=== PATIENT | male | born 1970 | race Caucasian/White ===

== ENCOUNTER → 2016-10-30 | Outpatient (CLI) | payer OTHER ==
[~2016-10-30] MED LIST: AMLO5TAB2 PO; FURO40TA PO; HYDR50CA PO; MULT-136 PO; MULTTAB; SPIR100T PO; VITA250T25 PO; potassium PO
[2016-10-30 09:38] LABS: HEMATOCRIT 43.6 % (39.0-51.0); MEAN CELL VOLUME 94.8 FL (80.0-100.0); MEAN CORPUSCULAR HEMOGLOBIN 32.3 PG (27.0-34.0); MEAN CORPUSCULAR HGB CONC 34.1 % (32.0-36.0); PLATELET COUNT 62 TH/MM3 (150-450); RED BLOOD COUNT 4.59 MIL/MM3 (4.50-5.90); RED CELL DISTRIBUTION WIDTH 15.3 % (11.6-17.2); WHITE BLOOD COUNT 5.5 TH/MM3 (4.0-11.0)
[2016-10-30 09:41] LABS: REVIEW FLAG FINAL
[2016-10-30 10:11] LABS: ANION GAP 6 MEQ/L (5-15); AST (GOT) 51 U/L (15-37); BICARBONATE 25.9 MEQ/L (21.0-32.0); BLOOD UREA NITROGEN 9 MG/DL (7-18); CHLORIDE 104 MEQ/L (98-107); GLOMERULAR FILTRATION RATE 118 ML/MIN (>89); GLUCOSE,FASTING 112 MG/DL (74-99); POTASSIUM 4.4 MEQ/L (3.5-5.1); SODIUM (NA) 136 MEQ/L (136-145)
[2016-10-30 10:13] LABS: ALT (GPT) 30 U/L (12-78)
[2016-10-30 10:22] LABS: ALKALINE PHOSPHATASE 206 U/L (45-117); HDL CHOLESTEROL 38.1 MG/DL (40.0-60.0); LDL CHOLESTEROL 80 MG/DL (0-99); TOTAL BILIRUBIN ADULT 2.7 MG/DL (0.2-1.0)
== END ==
LOC: CLAB 09:03
PROVIDERS: ATTEND Family Medicine
DX: F10.10 Alcohol abuse, uncomplicated (principal); L73.9 Follicular disorder, unspecified; Z20.6 Contact with and (suspected) exposure to human immunodeficiency virus [HIV]; Z72.0 Tobacco use
CPT/HCPCS: 80053; 80061; 84443; 85027; 86703

== ENCOUNTER 2017-07-19 22:33 | Emergency (ER) | payer SELFPAY ==
[~2017-07-19] VITALS: Ht 177.8 cm; Wt 79.5 kg
[~2017-07-19 22:33] MED LIST changes: -MULT-136 PO
[2017-07-19 22:48] VITALS: BP 160/85; PULSE 96; RESP 18; TEMP 98.6; O2SAT 98
[2017-07-19] MEDS ORDERED: SODIUM CHLOR 0.9% 1000 ML INJ 1,000 ML IV SCH (23:34)
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
[2017-07-19] MEDS ORDERED: SODIUM CHLORIDE 0.9% FLUSH 10 ML FLUSH IV FLUSH PRN (23:45)
[2017-07-19] MEDS ORDERED: TETANUS/DIPHTHERIA TOXOID ADULT 0.5 ML VIAL IM ONE (23:45)
[2017-07-19 23:50] VITALS: BP 162/82; PULSE 88; RESP 18; O2SAT 98
[2017-07-19 23:58] VITALS: O2SAT 98
[2017-07-20 00:03] LABS: BILIRUBIN, URINE SMALL (NEG); BLOOD, URINE SMALL (NEG); GLUCOSE,URINE NEG (NEG); KETONE, URINE TRACE mg/dL (NEG); NITRITE,URINE NEG (NEG); PH, URINE 5.5 (5.0-8.5); URINE COLOR YELLOW (YELLW/STRAW); URINE LEUKOCYTE ESTERASE NEG (NEG)
[2017-07-20 00:04] LABS: AUTOMATED NEUTROPHIL # 8.9 TH/MM3 (1.8-7.7); BASOPHIL # 0.2 TH/MM3 (0-0.2); BASOPHIL % 2.2 % (0.0-2.0); EOSINOPHIL % 0.3 % (0.0-4.0); HEMATOCRIT 42.9 % (39.0-51.0); HEMOGLOBIN 14.8 GM/DL (13.0-17.0); LYMPH % 5.4 % (9.0-44.0); LYMPHOCYTE # 0.6 TH/MM3 (1.0-4.8); MEAN CELL VOLUME 99.1 FL (80.0-100.0); MEAN CORPUSCULAR HEMOGLOBIN 34.2 PG (27.0-34.0); MEAN CORPUSCULAR HGB CONC 34.5 % (32.0-36.0); MEAN PLATELET VOLUME 6.7 FL (7.0-11.0); MONOCYTE # 1.3 TH/MM3 (0-0.9); NEUT % 80.1 % (16.0-70.0); PLATELET COUNT 77 TH/MM3 (150-450); RED BLOOD COUNT 4.33 MIL/MM3 (4.50-5.90); RED CELL DISTRIBUTION WIDTH 14.2 % (11.6-17.2)
[2017-07-20 00:19] LABS: CHLORIDE 106 MEQ/L (98-107); SODIUM (NA) 137 MEQ/L (136-145)
[2017-07-20 00:23] LABS: SQUAMOUS EPITHELIAL CELL URINE 0-5 /hpf (0-5); WBC, URINE 0-2 /hpf (0-5)
[2017-07-20 00:24] LABS: ALBUMIN 3.5 GM/DL (3.4-5.0); BICARBONATE 20.2 MEQ/L (21.0-32.0); BLOOD UREA NITROGEN 9 MG/DL (7-18); CALCIUM 8.9 MG/DL (8.5-10.1); GLUCOSE,RANDOM 138 MG/DL (74-106)
[2017-07-20 00:27] LABS: ALT (GPT) 36 U/L (12-78); AST (GOT) 68 U/L (15-37); GLOMERULAR FILTRATION RATE 143 ML/MIN (>89)
[2017-07-20 00:29] LABS: TOTAL BILIRUBIN ADULT 3.2 MG/DL (0.2-1.0); TOTAL PROTEIN 8.1 GM/DL (6.4-8.2)
[2017-07-20 00:30] LABS: ALKALINE PHOSPHATASE 195 U/L (45-117)
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
[2017-07-20] MEDS ORDERED: CLINDAMYCIN 900 MG/NS PREMIX 50 ML IV ONE (01:30)
[2017-07-20 01:58] VITALS: BP 154/84; PULSE 88; RESP 18; O2SAT 99
[2017-07-20 05:37] VITALS: BP 150/80; PULSE 84; RESP 18; O2SAT 98
== END 2017-07-20 06:09 | disposition left against medical advice (07) ==
LOC: PHED 22:33
DX: S02.81XA Fracture of other specified skull and facial bones, right side, initial encounter for closed fracture (principal); S02.2XXA Fracture of nasal bones, initial encounter for closed fracture; S06.300A Unspecified focal traumatic brain injury without loss of consciousness, initial encounter; Y09 Assault by unspecified means; F10.10 Alcohol abuse, uncomplicated; Y90.6 Blood alcohol level of 120-199 mg/100 ml; K74.60 Unspecified cirrhosis of liver; Z23 Encounter for immunization; Z53.20 Procedure and treatment not carried out because of patient's decision for unspecified reasons
CPT/HCPCS: 70450; 70486; 72125; 80053; 80307; 81001; 82140; 85025; 90471; 90714; 96361; 96365; 99284; J7030

== ENCOUNTER 2017-09-14 06:09 | Emergency (ER) | payer OTHER ==
[~2017-09-14] VITALS: Ht 177.8 cm; Wt 78.0 kg
[~2017-09-14 06:09] MED LIST changes: -HYDR50CA PO; -MULTTAB; -VITA250T25 PO; -potassium PO
[2017-09-14 06:11] VITALS: BP 170/88; PULSE 102; RESP 20; TEMP 97.9; O2SAT 95
[2017-09-14 06:26] VITALS: BP 126/62; PULSE 89
[2017-09-14] MEDS ORDERED: FUROSEMIDE 40 MG/4 ML VIAL IV PUSH ONE (06:30)
[2017-09-14] MEDS ORDERED: FURO40TA PO (06:35)
[2017-09-14] MEDS ORDERED: SPIR100T PO (06:35)
[2017-09-14] MEDS ORDERED: AMLO5TAB2 PO (06:35)
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
[2017-09-14 06:49] LABS: AUTOMATED NEUTROPHIL # 7.5 TH/MM3 (1.8-7.7); BASOPHIL % 0.4 % (0.0-2.0); EOSINOPHIL # 0.1 TH/MM3 (0-0.4); EOSINOPHIL % 0.6 % (0.0-4.0); HEMATOCRIT 41.1 % (39.0-51.0); HEMOGLOBIN 14.4 GM/DL (13.0-17.0); LYMPH % 5.2 % (9.0-44.0); LYMPHOCYTE # 0.5 TH/MM3 (1.0-4.8); MEAN CELL VOLUME 98.9 FL (80.0-100.0); MEAN CORPUSCULAR HEMOGLOBIN 34.6 PG (27.0-34.0); MEAN PLATELET VOLUME 6.9 FL (7.0-11.0); MONO % 11.1 % (0.0-8.0); NEUT % 82.7 % (16.0-70.0); PLATELET COUNT 72 TH/MM3 (150-450); RED BLOOD COUNT 4.16 MIL/MM3 (4.50-5.90); RED CELL DISTRIBUTION WIDTH 14.5 % (11.6-17.2); WHITE BLOOD COUNT 9.1 TH/MM3 (4.0-11.0)
[2017-09-14 07:09] LABS: ALBUMIN 3.3 GM/DL (3.4-5.0); ALT (GPT) 132 U/L (12-78); AST (GOT) 349 U/L (15-37); BICARBONATE 22.1 MEQ/L (21.0-32.0); BLOOD UREA NITROGEN 7 MG/DL (7-18); CALCIUM 8.2 MG/DL (8.5-10.1); CHLORIDE 106 MEQ/L (98-107); CREATININE 0.52 MG/DL (0.60-1.30); GLOMERULAR FILTRATION RATE 169 ML/MIN (>89); GLUCOSE,RANDOM 138 MG/DL (74-106); MAGNESIUM 1.8 MG/DL (1.5-2.5); SODIUM (NA) 139 MEQ/L (136-145)
--- NOTE | 2017-09-14 07:10 | PD ---
Data Data Last Documented VS Vital Signs Date Time Temp Pulse Resp B/P (MAP) Pulse Ox O2 Delivery O2 Flow Rate FiO2 09/14/17 06:26 89 126/62 (83) 09/14/17 06:11 97.9 20 95 Orders Orders Complete Blood Count With Diff (09/14/17 06:27) Comprehensive Metabolic Panel (09/14/17 06:27) Magnesium (Mg) (09/14/17 06:27) Alcohol (Ethanol) (09/14/17 06:27) Iv Access Insert/Monitor (09/14/17 06:27) Furosemide Inj (Lasix Inj) (09/14/17 06:30) Ed Discharge Order (09/14/17 07:43) Labs Laboratory Tests Test 09/14/17 06:31 White Blood Count 9.1 TH/MM3 Red Blood Count 4.16 MIL/MM3 Hemoglobin 14.4 GM/DL Hematocrit 41.1 % Mean Corpuscular Volume 98.9 FL Mean Corpuscular Hemoglobin 34.6 PG Mean Corpuscular Hemoglobin Concent 35.0 % Red Cell Distribution Width 14.5 % Platelet Count 72 TH/MM3 Mean Platelet Volume 6.9 FL Neutrophils (%) (Auto) 82.7 % Lymphocytes (%) (Auto) 5.2 % Monocytes (%) (Auto) 11.1 % Eosinophils (%) (Auto) 0.6 % Basophils (%) (Auto) 0.4 % Neutrophils # (Auto) 7.5 TH/MM3 Lymphocytes # (Auto) 0.5 TH/MM3 Monocytes # (Auto) 1.0 TH/MM3 Eosinophils # (Auto) 0.1 TH/MM3 Basophils # (Auto) 0.0 TH/MM3 CBC Comment AUTO DIFF Differential Comment AUTO DIFF CONFIRMED Platelet Estimate LOW Platelet Morphology Comment NORMAL Blood Urea Nitrogen 7 MG/DL Creatinine 0.52 MG/DL Random Glucose 138 MG/DL Total Protein 7.7 GM/DL Albumin 3.3 GM/DL Calcium Level 8.2 MG/DL Magnesium Level 1.8 MG/DL Alkaline Phosphatase 259 U/L Aspartate Amino Transf (AST/SGOT) 349 U/L Alanine Aminotransferase (ALT/SGPT) 132 U/L Total Bilirubin 3.4 MG/DL Sodium Level 139 MEQ/L Potassium Level 3.8 MEQ/L Chloride Level 106 MEQ/L Carbon Dioxide Level 22.1 MEQ/L Anion Gap 11 MEQ/L Estimat Glomerular Filtration Rate 169 ML/MIN Ethyl Alcohol Level 159 MG/DL [facility] Supervised Visit with [facility]: No Narrative Course Patient care assumed from Dr. Mcclendon, at 0700. This is a 47 year old male presents to the ER for evaluation of abdominal pain. History of cirrhosis and on/off abdominal pain. He states that he was told by doctors he couldn't take anything for pain because of his cirrhosis so instead he smokes marijuana and drinks wine. Patient states his abdominal pain is generalized, fairly mild, no fevers, no n/v/d. On exam patient has easily reducible umbilical hernia. Abdomen is distended with ascites but has no peritoneal signs. Non-tender to palpation. He is already requesting to go home. Probably under the influence now, but is clinically sober. States he has his diuretics at home. Asked about repair of hernia, we discussed he would be a fairly high risk surgical candidate now with ascites and cirrhosis. Discussed need for alcohol and tobacco cessation. Diagnosis Primary Impression: Alcohol abuse Additional Impressions: Ascites Qualified Codes: K70.31 - Alcoholic cirrhosis of liver with ascites Cirrhosis Qualified Codes: K70.31 - Alcoholic cirrhosis of liver with ascites Umbilical hernia Qualified Codes: K42.9 - Umbilical hernia without obstruction or gangrene Patient Instructions: Alcohol Dependence (ED), Cirrhosis (DC), General Instructions, How to Stop Smoking (DC) Additional Instruction: Avoid alcohol. Take medications as prescribed. Follow-up with her primary doctor in the next 2-4 days. Return to the emergency department for any new or worsening symptoms. Scripts Spironolactone (Spironolactone) 100 Mg Tab 100 MG PO DAILY, #30 TAB 3 Refills Prov: Hunter Mcclendon MD 09/14/17 Furosemide (Furosemide) 40 Mg Tab 40 MG PO DAILY, #30 TAB 3 Refills Prov: Hunter Mcclendon MD 09/14/17 Amlodipine (Amlodipine) 5 Mg Tab 5 MG PO DAILY for Blood Pressure Management, #30 TAB 0 Refills Prov: Hunter Mcclendon MD 09/14/17 Disposition: 01 DISCHARGE HOME Condition: Stable Mando Matthews MD Sep 14, 2017 07:10
[2017-09-14 07:11] LABS: ALKALINE PHOSPHATASE 259 U/L (45-117); TOTAL BILIRUBIN ADULT 3.4 MG/DL (0.2-1.0); TOTAL PROTEIN 7.7 GM/DL (6.4-8.2)
== END 2017-09-14 08:28 | disposition home or self-care (01) ==
LOC: NEPC 06:09
DX: F10.10 Alcohol abuse, uncomplicated (principal); K70.31 Alcoholic cirrhosis of liver with ascites; R10.9 Unspecified abdominal pain; F32.9 Major depressive disorder, single episode, unspecified; I10 Essential (primary) hypertension; F17.210 Nicotine dependence, cigarettes, uncomplicated; F12.90 Cannabis use, unspecified, uncomplicated; Z88.0 Allergy status to penicillin; Z88.5 Allergy status to narcotic agent
CPT/HCPCS: 80053; 80307; 83735; 85025; 96374; 99284; J1940

== ENCOUNTER 2018-03-04 15:15 | Inpatient (IN) ==
[2018-03-04] MEDS ORDERED: Sod Chloride 0.9% Inj 1,000 ML IV.SIG SCH (16:30)
[2018-03-04 16:43] LABS: Baso # (Auto) 0.1 th/mm3 (0.0-0.2); Baso % (Auto) 0.8 % (0.0-2.0); Eos % (Auto) 0.1 % (0.0-4.0); Hematocrit 27.6 % (39.0-51.0); Hemoglobin 9.3 gm/dL (13.0-17.0); Lymph # (Auto) 0.7 th/mm3 (1.0-4.8); Lymph % (Auto) 4.2 % (9.0-44.0); Mean Corpuscular HGB Conc 33.8 % (32.0-36.0); Mean Corpuscular Hemoglobin 34.9 pg (27.0-34.0); Mean Corpuscular Volume 103.2 fL (80.0-100.0); Mean Platelet Volume 7.2 fL (7.0-11.0); Mono # (Auto) 2.1 th/mm3 (0.0-0.9); Mono % (Auto) 12.7 % (0.0-8.0); Neut # (Auto) 13.3 th/mm3 (1.8-7.7); Neut % (Auto) 82.2 % (16.0-70.0); Platelet Count 185 th/mm3 (150-450); Red Blood Count 2.68 mil/mm3 (4.50-5.90); Red Cell Distribution Width 14.5 % (11.6-17.2); White Blood Count 16.2 th/mm3 (4.0-11.0)
[2018-03-04 16:47] LABS: Activated Partial Thrombo Time 28.5 sec (23.4-31.7); INR 1.5 Ratio; Prothrombin Time 14.7 sec (9.8-11.6)
--- NOTE | 2018-03-04 17:11 | ED ---
HPI General Chief complaint: GI Bleed Stated complaint: Rectal bleeding Time Seen by Provider: 03/04/18 16:03 Source: patient and family Mode of arrival: ambulatory Limitations: no limitations History of Present Illness HPI Narrative: 47 M c/o bleeding hemorrhoid. For the past few days the patient reports brisk rectal bleeding intermittently. Bleeding is reported to be sever at home, soaking multiple bath towels at home. Hemorrhoids have been bothersome for several years although much worse over the past few years. + hx alcohol abuse with cirrhosis on lasix and spironolactone. + Hx internal and external hemorrhoids on colonoscopy about two years. Over the days today patient reports increasing generalized fatigue and weakness raising concern for anemia due to blood loss. Related Data Home Medications Medication Instructions Recorded Confirmed amlodipine 2.5 mg PO DAILY 03/04/18 03/04/18 cyanocobalamin (vitamin B-12) 1,000 mcg PO DAILY 03/04/18 03/04/18 [Vitamin B-12] furosemide [Lasix] 40 mg PO DAILY 03/04/18 03/04/18 multivitamin 1 tab PO DAILY 03/04/18 03/04/18 potassium 2.5 meq PO DAILY 03/04/18 03/04/18 ropinirole 0.25 mg PO TID 03/04/18 03/04/18 spironolactone 25 mg PO DAILY 03/04/18 03/04/18 Allergies Allergy/AdvReac Type Severity Reaction Status Date / Time cephalexin Allergy Unknown Hives Verified 03/04/18 15:18 penicillin G Allergy Unknown Hives Verified 03/04/18 15:18 codeine AdvReac Mild N/V Verified 03/04/18 15:18 Review of Systems ROS: all other systems reviewed are negative Constitutional Denies fever(s) [facility] Medical History Medical History AA (alcohol abuse) (Acute) Cirrhosis (Acute) Hypertension (Acute) Umbilical hernia (Acute) Surgical History Surgical History No history of previous surgery (Acute) Social History Social History Substance History: Active Abuse Second Hand Smoke Exposure: Yes Smoking Status: Heavy tobacco smoker Tobacco Type: Cigarettes How Often Do You Have a Drink Containing Alcohol: 4 or more times a week Recent Travel in [facility] within the Last 8 Weeks: No Recent Out of Country Travel within the Last 8 Weeks: No Substance Abuse Detail Alcohol: Substance Use Status: Active Route Used Substance Abuse: By Mouth Substance Frequency: daily last midnight Reason for Use: Calm Down Immunization History Tetanus Immunization: Unsure Exam Narrative Exam Narrative: GENERAL: 47 yo M, chronically ill in appearance RECTAL: Approx 4cm hemorrhoid along the L half of the anus with multiple large internal hemorrhoids, poss prolapse internal hemorrhoid versus external hemorrhoid SKIN: Focused skin assessment warm/dry. HEAD: Atraumatic. Normocephalic. EYES: Pupils equal and round. No scleral icterus. No injection or drainage. ENT: No nasal bleeding or discharge. Mucous membranes pink and moist. NECK: Trachea midline. No JVD. CARDIOVASCULAR: HR in 90s. Regular rhythm. RESPIRATORY: No accessory muscle use. Clear to auscultation. Breath sounds equal bilaterally. GASTROINTESTINAL: Abdomen soft, non-tender, nondistended. Hepatic and splenic margins not palpable. MUSCULOSKELETAL: No obvious deformities. No clubbing. No cyanosis. No edema. NEUROLOGICAL: Awake and alert. No obvious cranial nerve deficits. Motor grossly within normal limits. Normal speech. PSYCHIATRIC: Appropriate mood and affect; insight and judgment normal. Course Initial Documented Vital Signs Temperature 98.4 F 03/04/18 15:16 Pulse Rate 101 H 03/04/18 15:16 Respiratory Rate 20 03/04/18 15:16 Blood Pressure 117/57 L 03/04/18 15:16 Pulse Oximetry 99 03/04/18 15:16 Last Documented Vital Signs Temperature 98.4 F 03/04/18 15:16 Pulse Rate 95 H 03/04/18 20:31 Respiratory Rate 15 03/04/18 20:31 Blood Pressure 111/52 L 03/04/18 20:31 Pulse Oximetry 100 03/04/18 20:31 Critical Care Time Critical Care Time: Yes Total Critical Care Time: 35 Attestation: Aggregate critical care time was 35 minutes. Time to perform other separately billable procedures was not included in the critical care time. My time did not include minutes spent treating any other patients simultaneously or on activities that did not directly contribute to the patient's treatment. The services I provided to this patient were to treat and/or prevent clinically significant deterioration that could result in: hemorrhagic shock, multiple organ injury I provided critical care services requiring my management, as noted below: Chart data review, documentation time, medication orders and management, vital sign assessments/reviewing monitor data, ordering and reviewing lab tests, ordering and interpreting/reviewing x-rays and diagnostic studies, care of the patient and discussion of the patient with the admitting physicians. Medical Decision Making MDM Narrative Medical decision making narrative: 500cc NS given over approx 2 hours BP has remained approx 110/50s Hb has dropped from 14.4 - 9.3; most recent prior six month ago CMP shows hyponatremia at 120, atypical for patient; LFT abnormalities are stable There is concern for acute blood loss due to bleeding hemorrhoid. No colorectal surgeon is community relations assistant today (03/04/2018) d/w Dr Herrera Carrasquillo for general surgery, deferred case to GI or transfer to outside facility d/w Dr Garcia for GI, recommended colorectal consult as outpatient if patient stable d/w Dr Murillo for [facility] Because this patient may require colorectal consultation and [facility] does not have coverage domenic pugh d/w ED Stage Driver. Pt required 0.5mg ativan at 1849 as patient reported withdrawal symptoms. Plan discussed with patient and family member at approx 1900. Both verbalized agreement. Medical Screen Exam Complete: Yes Emergency Medical Condition: Yes Lab Data Result diagrams: 03/04/18 15:35 03/04/18 15:35 Lab Results 03/04/18 03/04/18 03/04/18 Range/Units 15:35 15:35 15:35 CBC w Diff Slide review pending WBC 16.2 H (4.0-11.0) th/mm3 RBC 2.68 L (4.50-5.90) mil/mm3 Hgb 9.3 L (13.0-17.0) gm/dL Hct 27.6 L (39.0-51.0) % MCV 103.2 H (80.0-100.0) fL MCH 34.9 H (27.0-34.0) pg MCHC 33.8 (32.0-36.0) % RDW 14.5 (11.6-17.2) % Plt Count 185 (150-450) th/mm3 MPV 7.2 (7.0-11.0) fL Neut % (Auto) 82.2 H (16.0-70.0) % Lymph % (Auto) 4.2 L (9.0-44.0) % [place] % (Auto) 12.7 H (0.0-8.0) % Eos % (Auto) 0.1 (0.0-4.0) % Baso % (Auto) 0.8 (0.0-2.0) % Neut # (Auto) 13.3 H (1.8-7.7) th/mm3 Lymph # (Auto) 0.7 L (1.0-4.8) th/mm3 [place] # (Auto) 2.1 H (0.0-0.9) th/mm3 Eos # (Auto) 0.0 (0.0-0.4) th/mm3 Baso # (Auto) 0.1 (0.0-0.2) th/mm3 WBC Differential . Diff Scan Auto diff confirmed Differential Comment . Platelet Estimate Normal (Normal) Platelet Morphology Normal (Normal) PT 14.7 H (9.8-11.6) sec INR 1.5 Ratio APTT 28.5 (23.4-31.7) sec Sodium 120 L* (136-145) meq/L Potassium 3.8 (3.5-5.1) meq/L Chloride 85 L (98-107) meq/L Carbon Dioxide 22.9 (21.0-32.0) meq/L Anion Gap 12 (5-15) meq/L BUN 10 (7-18) mg/dL Creatinine 0.51 L (0.60-1.30) mg/dL Estimated GFR Greater than 89 (>89) mL/min Random Glucose 109 H (74-106) mg/dL Calcium 7.5 L (8.5-10.1) mg/dL Total Bilirubin 3.6 H (0.2-1.0) mg/dL AST 188 H (15-37) U/L ALT 87 H (12-78) U/L Alkaline Phosphatase 201 H (45-117) U/L Total Protein 6.3 L (6.4-8.2) g/dL Albumin 2.5 L (3.4-5.0) g/dL Blood Type Blood Type Recheck Antibody Screen 03/04/18 Range/Units 15:35 CBC w Diff WBC (4.0-11.0) th/mm3 RBC (4.50-5.90) mil/mm3 Hgb (13.0-17.0) gm/dL Hct (39.0-51.0) % MCV (80.0-100.0) fL MCH (27.0-34.0) pg MCHC (32.0-36.0) % RDW (11.6-17.2) % Plt Count (150-450) th/mm3 MPV (7.0-11.0) fL Neut % (Auto) (16.0-70.0) % Lymph % (Auto) (9.0-44.0) % [place] % (Auto) (0.0-8.0) % Eos % (Auto) (0.0-4.0) % Baso % (Auto) (0.0-2.0) % Neut # (Auto) (1.8-7.7) th/mm3 Lymph # (Auto) (1.0-4.8) th/mm3 [place] # (Auto) (0.0-0.9) th/mm3 Eos # (Auto) (0.0-0.4) th/mm3 Baso # (Auto) (0.0-0.2) th/mm3 WBC Differential Diff Scan Differential Comment Platelet Estimate (Normal) Platelet Morphology (Normal) PT (9.8-11.6) sec INR Ratio APTT (23.4-31.7) sec Sodium (136-145) meq/L Potassium (3.5-5.1) meq/L Chloride (98-107) meq/L Carbon Dioxide (21.0-32.0) meq/L Anion Gap (5-15) meq/L BUN (7-18) mg/dL Creatinine (0.60-1.30) mg/dL Estimated GFR (>89) mL/min Random Glucose (74-106) mg/dL Calcium (8.5-10.1) mg/dL Total Bilirubin (0.2-1.0) mg/dL AST (15-37) U/L ALT (12-78) U/L Alkaline Phosphatase (45-117) U/L Total Protein (6.4-8.2) g/dL Albumin (3.4-5.0) g/dL Blood Type A Negative Blood Type Recheck Not needed Antibody Screen Negative Discharge Plan Discharge Disposition Patient Disposition: ED Admit(ED Internal Use Only) Discharge Order Discharge Orders: ED Use Only Admit Order (Routine); Ordered 03/04/18 Ordered By: Hong Polanco Physicians Team ED Provider: Hong Polanco Primary Care Provider: UNKNOWN, Attending Provider: Jayy Murillo Discharge Interventions Interventions: Vital Signs Last Done: 03/04/18 18:46 Status ED Status: Admitted Patient
[2018-03-04 17:12] LABS: Alanine Aminotransferase 87 U/L (12-78); Albumin 2.5 g/dL (3.4-5.0); Alkaline Phosphatase 201 U/L (45-117); Anion Gap 12 meq/L (5-15); Aspartate Aminotransferase 188 U/L (15-37); Blood Urea Nitrogen 10 mg/dL (7-18); Calcium 7.5 mg/dL (8.5-10.1); Carbon Dioxide 22.9 meq/L (21.0-32.0); Chloride 85 meq/L (98-107); Glomerular Filtration Rate Greater Than 89 mL/min (>89); Glucose,Random 109 mg/dL (74-106); Potassium 3.8 meq/L (3.5-5.1); Total Protein 6.3 g/dL (6.4-8.2)
[2018-03-04 17:15] LABS: Sodium 120 meq/L (136-145)
[2018-03-04 17:33] LABS: Platelet Estimate Normal (Normal); Platelet Morphology Normal (Normal)
[2018-03-04] MEDS ORDERED: Acetaminophen 325 MG Tablet PO PRN (20:15)
[2018-03-04] MEDS ORDERED: Bisacodyl 10 MG Supp RECTAL PRN (20:15)
[2018-03-04] MEDS ORDERED: LORazepam 1 MG Tablet PO PRN (20:26)
[2018-03-04] MEDS ORDERED: Haloperidol Inj 5 MG/ML Ampul IV.PUSH PRN (20:26)
[2018-03-04] MEDS: Phytonadione 5 MG/SWFI 5 ML Oral Syringe PO SCH (21:21)
[2018-03-04 23:04] LABS: Clarity,Urine Clear (Clear); Color,Urine Yellow (Yellw/Straw); Glucose,Urine (UA) Negative (Negative); Leukocyte Esterase,Urine Negative (Negative); Nitrite,Urine Negative (Negative)
[2018-03-04 23:09] LABS: Bilirubin,Urine Negative (Negative); Ictotest,Urine Negative (Negative)
[2018-03-04 23:13] LABS: RBC,Urine 0-3 /hpf (0-3)
[2018-03-04 23:14] LABS: Squamous Epithelial Cell,Urine 0-5 /hpf (0-5)
--- NOTE | 2018-03-05 04:29 | P.HPIM ---
History of Present Illness Service: [facility] Primary Care Physician: UNKNOWN Chief Complaint: Rectal bleeding History of Present Illness: Mr. Melgar is a 47-year-old male with a history of alcohol abuse, cirrhosis, and hypertension who presented to the emergency room and [place] complaining of bleeding hemorrhoids over the past week with subsequent progressively worsening fatigue and weakness. Initial hemoglobin was 9.3 with repeat of 8.2. The patient was admitted to the hospitalist service and transferred from [place] to [facility]. The patient is seen in his hospital room. He is very soft-spoken and his mother is at the bedside. He reports about a week history of intermittent rectal bleeding. The patient had severe bleeding at home and soaked multiple bath towels there. He has had hemorrhoids over the past several years but over the past few years have gotten worse. He had a colonoscopy 2 years ago with findings of internal and external hemorrhoids. He has a history of alcohol abuse and reports he is still drinking. Denies any family history of liver disease. He states that other than the above-stated symptoms, he has been in decent health with no fevers, chills, chest pain, shortness of breath, nausea, vomiting, or diarrhea. Inpatient Certification: I certify that the inpatient services were ordered in accordance with Medicare regulations governing the order. This includes certification that hospital inpatient services are reasonable and necessary and in the case of services not specified as inpatient-only under 42 CFR 419.22(n), that they are appropriately provided as inpatient services in accordance to with the 2-midnight benchmark under 43 CFR 412.3(e) Estimated Total Length of Stay (Days): 3 Plans for Post Hospital Care: Not yet determined Review of Systems All other systems reviewed negative except as stated [facility] - History History Provided By: Patient - Medical History Medical History: Medical History (Last Reviewed 03/05/18 @ 04:56 by BARRY Becerra) AA (alcohol abuse) Cirrhosis Hypertension Umbilical hernia - Surgical History Surgical History: Surgical History (Last Reviewed 03/05/18 @ 04:55 by BARRY Becerra) No history of previous surgery - Family History Family History: Family History (Last Updated 03/05/18 @ 04:33 by BARRY Becerra) Other No significant family history - Social History I have reviewed the patient's Social History: Yes - Tobacco History Second Hand Smoke Exposure: Yes Tobacco Use In Past 30 Days: Yes Smoking Status: Heavy tobacco smoker Tobacco Type: Cigarettes - Alcohol History How Often Do You Have a Drink Containing Alcohol: 4 or more times a week - Substance Use History Substance History: Active Abuse - Substance Use Type Alcohol Status: Active Route Used: By Mouth Frequency: 2-3 BEERS /DAY Reason for Use: Calm Down, Feels Good - Travel History Recent Travel in the [place] Within the Last 8 Weeks: No Recent Travel Out of the Country Within the Last 8 Weeks: No - Immunization History Tetanus Immunization: Unsure Hx Influenza Vaccine This Season: No Medications and Allergies Active Medications: Active Medications Acetaminophen (Tylenol) 650 mg PO Q4H PRN PRN Reason: Temp > 100.4 Al Hydroxide/Mg Hydroxide (Milk Of Magnesia Liq) 30 ml PO Q12H PRN PRN Reason: Mild Constipation Amlodipine Besylate (Norvasc) 5 mg PO DAILY MIKE Bisacodyl (Dulcolax Supp) 10 mg RECTAL DAILY PRN PRN Reason: SEVERE CONSITIPATION Cyanocobalamin (Vitamin B12) 1,000 mcg PO DAILY MIKE Flumazenil (Romazecon Inj) 0.2 mg IV.PUSH Q1M PRN PRN Reason: OVERSEDATION Furosemide (Lasix) 40 mg PO DAILY MIKE Haloperidol Lactate (Haldol Inj) 1 mg IV.PUSH Q15M PRN PRN Reason: for severe agitation Influenza Virus Vaccine (Fluarix (Quad) Vaccine Inj) 0.5 ml IM .ONCE ONE Stop: 03/05/18 09:01 Lactulose (Lactulose Liq) 30 ml PO DAILY PRN PRN Reason: SEVERE CONSITIPATION Lorazepam (Ativan) 1 mg PO Q4H PRN PRN Reason: for CIWA 8-10 Lorazepam (Ativan) 2 mg PO Q2H PRN PRN Reason: for CIWA 11-14 Lorazepam (Ativan Inj) 2 mg IV.PUSH Q2H PRN PRN Reason: for CIWA 11-14 Lorazepam (Ativan Inj) 2 mg IV.PUSH Q1H PRN PRN Reason: for CIWA 15-20 Lorazepam (Ativan Inj) 2 mg IV.PUSH Q15M PRN PRN Reason: for CIWA > 20 Lorazepam (Ativan Inj) 1 mg IV.PUSH Q4H PRN PRN Reason: for CIWA 8-10 Multivitamins (Theragran) 1 tab PO DAILY [facility] Ondansetron HCl (Zofran Inj) 4 mg IV.PUSH Q6H PRN PRN Reason: NAUSEA OR VOMITING Phytonadione (Mephyton Liq) 5 mg PO DAILY [facility] Last Admin: 03/04/18 21:21 Dose: 5 mg Potassium Chloride (Klor-Con 8) 8 meq PO DAILY [facility] Ropinirole HCl (Requip) 0.5 mg PO TID [facility] Sennosides (Senokot) 17.2 mg PO Q12H PRN PRN Reason: Moderate Constipation Sodium Chloride (Ns Flush) 2 ml IV.FLUSH BID [facility] Last Admin: 03/04/18 21:10 Dose: 2 ml Sodium Chloride (Ns Flush) 2 ml IV.FLUSH PRN PRN PRN Reason: FLUSH AFTER USING IV ACCESS Spironolactone (Aldactone) 100 mg PO DAILY [facility] Allergies Allergy/AdvReac Type Severity Reaction Status Date / Time cephalexin Allergy Unknown Hives Verified 03/04/18 15:18 penicillin G Allergy Unknown Hives Verified 03/04/18 15:18 codeine AdvReac Mild N/V Verified 03/04/18 15:18 Home Medications Medication Instructions Recorded Confirmed Type amlodipine 5 mg PO DAILY 03/04/18 03/04/18 History cyanocobalamin (vitamin B-12) 1,000 mcg PO DAILY 03/04/18 03/04/18 History [Vitamin B-12] furosemide [Lasix] 40 mg PO DAILY 03/04/18 03/04/18 History multivitamin 1 tab PO DAILY 03/04/18 03/04/18 History potassium 2.5 meq PO DAILY 03/04/18 03/04/18 History ropinirole 0.5 mg PO TID 03/04/18 03/04/18 History spironolactone 100 mg PO DAILY 03/04/18 03/04/18 History Exam Vital signs: Vital Signs 03/04/18 15:16 03/04/18 16:00 03/04/18 16:32 Temperature 98.4 F Pulse Rate 101 H 90 99 H Respiratory Rate 20 18 18 Blood Pressure 117/57 L 146/75 H 104/69 Pulse Oximetry 99 98 100 03/04/18 16:53 03/04/18 17:06 03/04/18 17:45 Temperature Pulse Rate 101 H 98 H Respiratory Rate 20 Blood Pressure 99/52 L Pulse Oximetry 97 98 03/04/18 18:46 03/04/18 19:54 03/04/18 20:31 Temperature Pulse Rate 101 H 95 H Respiratory Rate 20 15 Blood Pressure 120/69 111/52 L Pulse Oximetry 99 95 100 03/04/18 23:59 03/05/18 00:32 03/05/18 00:58 Temperature 98.0 F Pulse Rate 88 98 H Respiratory Rate 16 18 Blood Pressure 122/67 150/74 H Pulse Oximetry 96 97 97 03/05/18 01:02 03/05/18 01:45 03/05/18 03:22 Temperature 98.9 F Pulse Rate 105 H 96 H Respiratory Rate 18 Blood Pressure 112/69 Pulse Oximetry 97 97 03/05/18 04:00 Temperature Pulse Rate 94 H Respiratory Rate Blood Pressure Pulse Oximetry Intake & Output 03/04/18 03/04/18 03/05/18 06:59 18:59 06:59 Intake Total 500 / 500 500 / 500 Output Total 225 / 225 Balance 500 / 500 275 / 275 Weight 71 kg 72.9 kg Intake: IV 500 / 500 500 / 500 NS Inj 1,000 ML @ 1000 mls/hr 500 / 500 500 / 500 IV.SIG BOLUS MIKE Rx#:[id number] Output: Urine 225 / 225 Other: # Voids 1 Date of Last Bowel Movement 03/04/18 03/04/18 Weight On Admission 71 kg Narrative: GENERAL: This is a soft voice sleepy male patient, in no apparent distress. SKIN: No rashes, ecchymoses or lesions. Cool and dry. HEAD: Atraumatic. Normocephalic. EYES: No scleral icterus. No injection or drainage. ENT: Nose without bleeding, purulent drainage. NECK: Trachea midline. No JVD. CARDIOVASCULAR: Regular rate and rhythm without murmurs, gallops, or rubs. RESPIRATORY: Clear to auscultation. Breath sounds equal bilaterally. No wheezes , rales, or rhonchi. GASTROINTESTINAL: Abdomen soft, non-tender, nondistended. No guarding. External hemorrhoids noted, large, not bleeding at the time of exam. MUSCULOSKELETAL: Extremities without clubbing, cyanosis, or edema. No calf tenderness. NEUROLOGICAL: Awake and alert. Motor and sensory grossly within normal limits. Normal speech. . Results - Labs CBC & Chem 7: 03/04/18 20:50 03/04/18 20:50 Labs: Short CBC 03/04/18 03/04/18 Range/Units 15:35 20:50 WBC 16.2 H (4.0-11.0) th/mm3 Hgb 9.3 L 8.2 L (13.0-17.0) gm/dL Hct 27.6 L (39.0-51.0) % Plt Count 185 (150-450) th/mm3 BMP 03/04/18 03/04/18 15:35 20:50 Sodium 120 L* 121 L* Potassium 3.8 Chloride 85 L Carbon Dioxide 22.9 BUN 10 Creatinine 0.51 L Calcium 7.5 L Liver Function 03/04/18 Range/Units 15:35 Total Bilirubin 3.6 H (0.2-1.0) mg/dL AST 188 H (15-37) U/L ALT 87 H (12-78) U/L Alkaline Phosphatase 201 H (45-117) U/L Albumin 2.5 L (3.4-5.0) g/dL Urine 03/04/18 Range/Units 22:45 Urine Color Yellow (Yellw/Straw) Urine Clarity Clear (Clear) Urine pH 6.0 (5.0-8.5) Ur Specific [place] 1.020 (1.002-1.035) Urine Protein Negative (Neg-Trace) mg/dL Urine Glucose (UA) Negative (Negative) mg/dL Caprini VTE Risk Assessment Caprini VTE Risk Assessment: No/Low Risk (score <= 1) Caprini Risk Assessment Model: Point Value = 1 Point Value = 2 Point Value = 3 Point Value = 5 Age 41-60 Minor surgery BMI > 25 kg/m2 Swollen legs Varicose veins or History of unexplained or recurrent spontaneous Oral contraceptives or hormone replacement Sepsis (< 1 month) Serious lung disease, including pneumonia (< 1 month) Abnormal pulmonary function Acute myocardial infarction Congestive heart failure (< 1 month) History of inflammatory bowel disease Medical patient at bed rest Age 61-74 Arthroscopic surgery Major open surgery (> 45 min) Laparoscopic surgery (> 45 min) Malignancy Confined to bed (> 72 hours) Immobilizing plaster cast Central venous access Age >= 75 History of VTE Family history of VTE Factor V Leiden Prothrombin [id number] Lupus anticoagulant Anticardiolipin antibodies Elevated serum homocysteine Heparin-induced thrombocytopenia Other congenital or acquired thrombophilia Stroke (< 1 month) Elective arthroplasty Hip, pelvis, or leg fracture Acute spinal cord injury (< 1 month) Prophylaxis Regimen: Total Risk Factor Score Risk Level Prophylaxis Regimen 0-1 Low Early ambulation 2 Moderate Order ONE of the following: *Sequential Compression Device (SCD) *Heparin 5000 units SQ BID 3-4 Higher Order ONE of the following medications: *Heparin 5000 units SQ TID *Enoxaparin/Lovenox 40 mg SQ daily (WT < 150 kg, CrCl > 30 mL/min) *Enoxaparin/Lovenox 30 mg SQ daily (WT < 150 kg, CrCl > 10-29 mL/min) *Enoxaparin/Lovenox 30 mg SQ BID (WT < 150 kg, CrCl > 30 mL/min) AND/OR *Sequential Compression Device (SCD) 5 or more Highest Order ONE of the following medications: *Heparin 5000 units SQ TID (Preferred with Epidurals) *Enoxaparin/Lovenox 40 mg SQ daily (WT < 150 kg, CrCl > 30 mL/min) *Enoxaparin/Lovenox 30 mg SQ daily (WT < 150 kg, CrCl > 10-29 mL/min) *Enoxaparin/Lovenox 30 mg SQ BID (WT < 150 kg, CrCl > 30 mL/min) AND *Sequential Compression Device (SCD) Assessment and Plan - Plan Mr. Melgar is a 47-year-old male with a history of alcohol abuse, cirrhosis, and hypertension who presented to the emergency room and [place] complaining of bleeding hemorrhoids over the past week with subsequent progressively worsening fatigue and weakness. Initial hemoglobin was 9.3 with repeat of 8.2. The patient was admitted to the hospitalist service and transferred from [place] to [facility]. GI bleed -Significant hemorrhoids noticed on physical exam -Internal and external hemorrhoids and large rectal varices found on colonoscopy 2 years ago according to the EMR 05/09/15 -Hemoglobin 9.3 and hematocrit 27.6 -repeat hemoglobin 8.2; continue to check serial H&H and trend -transfuse as indicated -Consult gastroenterology-appreciate assistance -History of alcohol abuse and INR of 1.5 not on anticoagulation Liver Cirrhosis Alcohol abuse -T. Bili 3.6, AST elevated at 188 and ALT 87 and alkaline phosphatase 201 with hypoalbuminemia -Repeat CMP and follow results-trend liver function tests -Avoid hepatotoxic medications -CIMA protocol Leukocytosis -possibly reactive -Afebrile, UA normal -no other signs of infection -Recheck CBC and follow results -Monitor for signs of infection Hyponatremia likely related to potomania vs SIADH -fluid restriction -sodium tablet given - monitor bmp and sodium levels and adjust treatments accordingly -Check serum and urine osmolality DVT prophylaxis -Chemoprophylaxis contraindicated due to GI bleeding -SCDs Discussed Condition With: Patient, patient's mother with his permission, Dr. Murillo, and RN . H&P: Quality - VTE Deep Vein Thrombosis/Pulmonary Embolism Present on Admission: No
[2018-03-05 05:50] LABS: INR 1.8 Ratio; Prothrombin Time 17.8 sec (9.8-11.6)
[2018-03-05 05:58] LABS: Alanine Aminotransferase 74 U/L (12-78); Albumin 2.2 g/dL (3.4-5.0); Alkaline Phosphatase 177 U/L (45-117); Anion Gap 9 meq/L (5-15); Aspartate Aminotransferase 146 U/L (15-37); Blood Urea Nitrogen 14 mg/dL (7-18); Calcium 7.4 mg/dL (8.5-10.1); Carbon Dioxide 25.8 meq/L (21.0-32.0); Chloride 90 meq/L (98-107); Glomerular Filtration Rate Greater Than 89 mL/min (>89); Glucose,Random 85 mg/dL (74-106); Potassium 4.3 meq/L (3.5-5.1); Sodium 125 meq/L (136-145); Total Protein 5.4 g/dL (6.4-8.2)
[2018-03-05 06:21] LABS: Baso % (Auto) 0.1 % (0.0-2.0); Eos # (Auto) 0.1 th/mm3 (0.0-0.4); Eos % (Auto) 0.8 % (0.0-4.0); Hemoglobin 7.7 gm/dL (13.0-17.0); Lymph # (Auto) 0.8 th/mm3 (1.0-4.8); Lymph % (Auto) 6.5 % (9.0-44.0); Mean Corpuscular Hemoglobin 37.5 pg (27.0-34.0); Mean Platelet Volume 6.9 fL (7.0-11.0); Mono # (Auto) 2.1 th/mm3 (0.0-0.9); Mono % (Auto) 16.8 % (0.0-8.0); Neut # (Auto) 9.4 th/mm3 (1.8-7.7); Neut % (Auto) 75.8 % (16.0-70.0); Platelet Count 113 th/mm3 (150-450); Red Blood Count 2.06 mil/mm3 (4.50-5.90); Red Cell Distribution Width 14.4 % (11.6-17.2); White Blood Count 12.4 th/mm3 (4.0-11.0)
[2018-03-05 06:22] LABS: Mean Corpuscular HGB Conc 36.8 % (32.0-36.0)
[2018-03-05] MEDS ORDERED: Influenza (Quadrivalent) Vaccine 0.5 ML Syringe IM ONE (09:00)
[2018-03-05] MEDS: Phytonadione 5 MG/SWFI 5 ML Oral Syringe PO SCH ×2 (10:00→14:45)
[2018-03-05] MEDS: amLODIPine 5 MG Tablet PO SCH ×2 (10:00→14:45)
[2018-03-05] MEDS: Furosemide 40 MG Tablet PO SCH ×2 (10:00→14:44)
--- NOTE | 2018-03-05 11:32 | P.PN ---
Subjective Interval history: Visit for GI bleed and liver cirrhosis. Patient seen and examined resting in bed appears to be in no acute distress. Denies any further black or bloody stools, some nausea but no vomiting. Denies any abdominal pain or discomfort. He does report some shortness of breath with exertion and dizziness. He denies ever requiring paracentesis, states that he is only required medications for ascites. Physical Exam Vital signs: Vital Signs 03/04/18 15:16 03/04/18 16:00 03/04/18 16:32 Temperature 98.4 F Pulse Rate 101 H 90 99 H Respiratory Rate 20 18 18 Blood Pressure 117/57 L 146/75 H 104/69 Pulse Oximetry 99 98 100 03/04/18 16:53 03/04/18 17:06 03/04/18 17:45 Temperature Pulse Rate 101 H 98 H Respiratory Rate 20 Blood Pressure 99/52 L Pulse Oximetry 97 98 03/04/18 18:46 03/04/18 19:54 03/04/18 20:31 Temperature Pulse Rate 101 H 95 H Respiratory Rate 20 15 Blood Pressure 120/69 111/52 L Pulse Oximetry 99 95 100 03/04/18 23:59 03/05/18 00:32 03/05/18 00:58 Temperature 98.0 F Pulse Rate 88 98 H Respiratory Rate 16 18 Blood Pressure 122/67 150/74 H Pulse Oximetry 96 97 97 03/05/18 01:02 03/05/18 01:45 03/05/18 03:22 Temperature 98.9 F Pulse Rate 105 H 96 H Respiratory Rate 18 Blood Pressure 112/69 Pulse Oximetry 97 97 03/05/18 04:00 03/05/18 08:00 Temperature 99.4 F Pulse Rate 94 H 92 H Respiratory Rate 18 Blood Pressure 121/66 Pulse Oximetry 97 Intake & Output 03/04/18 03/05/18 03/05/18 18:59 06:59 18:59 Intake Total 500 / 500 500 / 500 Output Total 875 / 875 250 / 250 Balance 500 / 500 -375 / -375 -250 / -250 Weight 71 kg 72.9 kg Intake: IV 500 / 500 500 / 500 NS Inj 1,000 ML @ 1000 mls/hr 500 / 500 500 / 500 IV.SIG BOLUS MIKE Rx#:[id number] Oral 0 / 0 Output: Urine 875 / 875 250 / 250 Other: # Voids 1 Date of Last Bowel Movement 03/04/18 03/04/18 03/04/18 # Bowel Movements 0 Weight On Admission 71 kg Narrative: GENERAL: Well-developed, thin male sitting up in bed in no acute distress. SKIN: No ecchymoses or lesions. Cool and dry. Bilateral upper extremity erythematous rash (chronic). HEAD: Atraumatic. Normocephalic. EYES: No scleral icterus. No injection or drainage. ENT: Nose without bleeding, purulent drainage. NECK: Trachea midline. CARDIOVASCULAR: Regular rate and rhythm without murmurs, gallops, or rubs. RESPIRATORY: Clear to auscultation. Breath sounds equal bilaterally. No wheezes , rales, or rhonchi. GASTROINTESTINAL: Abdomen soft, non-tender, ascites. No guarding. + Bowel sounds , small reducible umbilical hernia. MUSCULOSKELETAL: Extremities without clubbing, cyanosis, or edema. NEUROLOGICAL: Awake and alert, oriented x3. Motor and sensory grossly within normal limits. Normal speech. Results - Labs CBC & Chem 7: 03/05/18 04:23 03/05/18 04:23 Laboratory Results - last 24 hr 03/04/18 03/04/18 03/04/18 15:35 15:35 15:35 CBC w Diff Slide review pending WBC 16.2 H RBC 2.68 L Hgb 9.3 L Hct 27.6 L MCV 103.2 H MCH 34.9 H MCHC 33.8 RDW 14.5 Plt Count 185 MPV 7.2 Prelim Diff (Auto) Neut % (Auto) 82.2 H Lymph % (Auto) 4.2 L [place] % (Auto) 12.7 H Eos % (Auto) 0.1 Baso % (Auto) 0.8 Neut # (Auto) 13.3 H Lymph # (Auto) 0.7 L [place] # (Auto) 2.1 H Eos # (Auto) 0.0 Baso # (Auto) 0.1 WBC Differential . Diff Scan Auto diff confirmed Differential Comment . Platelet Estimate Normal Platelet Morphology Normal PT 14.7 H INR 1.5 APTT 28.5 Sodium 120 L* Potassium 3.8 Chloride 85 L Carbon Dioxide 22.9 Anion Gap 12 BUN 10 Creatinine 0.51 L Estimated GFR Greater than 89 Random Glucose 109 H Osmolality Calcium 7.5 L Calcium Adj for Albumin Total Bilirubin 3.6 H AST 188 H ALT 87 H Alkaline Phosphatase 201 H Total Protein 6.3 L Albumin 2.5 L Urine Color Urine Clarity Urine pH Ur Specific [place] Urine Protein Urine Glucose (UA) Urine Ketones Urine Occult Blood Urine Nitrate Urine Bilirubin Urine Ictotest Urine Urobilinogen Ur Leukocyte Esterase Urine RBC Ur Squamous Epith Cells Ur Microscopic Review Blood Type Blood Type Recheck Antibody Screen 03/04/18 03/04/18 03/04/18 15:35 20:50 20:50 CBC w Diff WBC RBC Hgb 8.2 L Hct MCV MCH MCHC RDW Plt Count MPV Prelim Diff (Auto) Neut % (Auto) Lymph % (Auto) [place] % (Auto) Eos % (Auto) Baso % (Auto) Neut # (Auto) Lymph # (Auto) [place] # (Auto) Eos # (Auto) Baso # (Auto) WBC Differential Diff Scan Differential Comment Platelet Estimate Platelet Morphology PT INR APTT Sodium 121 L* Potassium Chloride Carbon Dioxide Anion Gap BUN Creatinine Estimated GFR Random Glucose Osmolality Calcium Calcium Adj for Albumin Total Bilirubin AST ALT Alkaline Phosphatase Total Protein Albumin Urine Color Urine Clarity Urine pH Ur Specific [place] Urine Protein Urine Glucose (UA) Urine Ketones Urine Occult Blood Urine Nitrate Urine Bilirubin Urine Ictotest Urine Urobilinogen Ur Leukocyte Esterase Urine RBC Ur Squamous Epith Cells Ur Microscopic Review Blood Type A Negative Blood Type Recheck Not needed Antibody Screen Negative 03/04/18 03/05/18 03/05/18 22:45 04:23 04:23 CBC w Diff WBC 12.4 H RBC 2.06 L Hgb 7.7 L Hct 21.0 L MCV 102.0 H MCH 37.5 H MCHC 36.8 H RDW 14.4 Plt Count 113 L D MPV 6.9 L Prelim Diff (Auto) Slide review pending Neut % (Auto) 75.8 H Lymph % (Auto) 6.5 L [place] % (Auto) 16.8 H Eos % (Auto) 0.8 Baso % (Auto) 0.1 Neut # (Auto) 9.4 H Lymph # (Auto) 0.8 L [place] # (Auto) 2.1 H Eos # (Auto) 0.1 Baso # (Auto) 0.0 WBC Differential . Diff Scan Auto diff confirmed Differential Comment . Platelet Estimate Platelet Morphology PT 17.8 H INR 1.8 APTT Sodium Potassium Chloride Carbon Dioxide Anion Gap BUN Creatinine Estimated GFR Random Glucose Osmolality Calcium Calcium Adj for Albumin Total Bilirubin AST ALT Alkaline Phosphatase Total Protein Albumin Urine Color Yellow Urine Clarity Clear Urine pH 6.0 Ur Specific [place] 1.020 Urine Protein Negative Urine Glucose (UA) Negative Urine Ketones 15 H Urine Occult Blood Trace Urine Nitrate Negative Urine Bilirubin Negative Urine Ictotest Negative Urine Urobilinogen 1.0 Ur Leukocyte Esterase Negative Urine RBC 0-3 Ur Squamous Epith Cells 0-5 Ur Microscopic Review Microscopic reviewed Blood Type Blood Type Recheck Antibody Screen 03/05/18 03/05/18 03/05/18 04:23 04:23 04:23 CBC w Diff WBC RBC Hgb Cancelled Hct MCV MCH MCHC RDW Plt Count MPV Prelim Diff (Auto) Neut % (Auto) Lymph % (Auto) [place] % (Auto) Eos % (Auto) Baso % (Auto) Neut # (Auto) Lymph # (Auto) [place] # (Auto) Eos # (Auto) Baso # (Auto) WBC Differential Diff Scan Differential Comment Platelet Estimate Platelet Morphology PT INR APTT Sodium 125 L Potassium 4.3 Chloride 90 L Carbon Dioxide 25.8 Anion Gap 9 BUN 14 Creatinine 0.46 L Estimated GFR Greater than 89 Random Glucose 85 Osmolality 256 L Calcium 7.4 L* Calcium Adj for Albumin 8.8 Total Bilirubin 3.4 H AST 146 H ALT 74 Alkaline Phosphatase 177 H Total Protein 5.4 L D Albumin 2.2 L Urine Color Urine Clarity Urine pH Ur Specific [place] Urine Protein Urine Glucose (UA) Urine Ketones Urine Occult Blood Urine Nitrate Urine Bilirubin Urine Ictotest Urine Urobilinogen Ur Leukocyte Esterase Urine RBC Ur Squamous Epith Cells Ur Microscopic Review Blood Type Blood Type Recheck Antibody Screen Assessment and Plan - Plan Mr. Melgar is a 47-year-old male with a history of alcohol abuse, cirrhosis, and hypertension who presented to the emergency room and [place] complaining of bleeding hemorrhoids over the past week with subsequent progressively worsening fatigue and weakness. Initial hemoglobin was 9.3 with repeat of 8.2. The patient was admitted to the hospitalist service and transferred from [place] to [facility]. Acute symptomatic anemia GI bleed -Significant hemorrhoids -Internal and external hemorrhoids and large rectal varices found on colonoscopy 2 years ago according to the EMR 05/09/15 -Drop in H&H to 7.7/21.1, symptomatic Transfuse with 1unti PRBC's, reports no further bleeding. -Consult gastroenterology-appreciate assistance - IV Cipro prophylactically given history of cirrhosis Liver Cirrhosis with coagulopathy Alcohol abuse -LFT's improved -INR -Avoid hepatotoxic medications -CIWA protocol Leukocytosis -possibly reactive, trending down -Afebrile, UA normal -Monitor for signs of infection Hyponatremia likely related to potomania vs SIADH -Serum osmolality 256 low, pending urine osmolality -s/p fluid restriction, continue IVF - NA levels improved - Continue monitoring levels DVT prophylaxis -Chemoprophylaxis contraindicated due to GI bleeding -SCDs Discussed Condition With: Patient and RN
[2018-03-05] MEDS ORDERED: Sodium Chlor 0.9% Inj 250 ML IV.SIG SCH ×2 (12:00→17:00)
--- NOTE | 2018-03-05 12:24 | P.CONGI ---
History of Present Illness Chief complaint: anemia, bleeding hemorrhoids History of Present Illness: This is a 47-year-old male with a history of alcohol abuse, and cirrhosis who presented with rectal bleeding for the past week. This is described as daily, several times a day, bright red bleed. States he has hx of intermittent rectal bleed due to hemorrhoids but never this bad and never lasted this long. He attributes to eating hot wings. Initial hemoglobin was 9.3 but today is 7.7. He had EGD/colonoscopy in 2016 with findings of esophageal varices, polyps, internal and external hemorrhoids. He has a history of alcohol abuse and reports he is still drinking a couple of drinks a day but diluted with ice and lemon. He has lost over 50 lbs in the last 6 months due to change in diet and eating healthy. He is on Aldactone 100 and Lasix 40. He endorses nausea, dry heaves, but no melena or diarrhea Review of Systems All other systems reviewed negative except as stated in HPI [facility] - History History Provided By: Patient - Medical History Medical History: Medical History (Last Reviewed 03/05/18 @ 04:56 by BARRY Becerra) AA (alcohol abuse) Cirrhosis Hypertension Umbilical hernia - Surgical History Surgical History: Surgical History (Last Reviewed 03/05/18 @ 04:55 by BARRY Becerra) No history of previous surgery - Family History Family History: Family History (Last Updated 03/05/18 @ 04:33 by BARRY Becerra) Other No significant family history - Tobacco History Second Hand Smoke Exposure: Yes Tobacco Use In Past 30 Days: Yes Smoking Status: Heavy tobacco smoker Tobacco Type: Cigarettes - Alcohol History How Often Do You Have a Drink Containing Alcohol: 4 or more times a week - Substance Use History Substance History: Active Abuse - Substance Use Type Alcohol Status: Active Route Used: By Mouth Frequency: 2-3 BEERS /DAY Reason for Use: Calm Down, Feels Good - Travel History Recent Travel in the [place] Within the Last 8 Weeks: No Recent Travel Out of the Country Within the Last 8 Weeks: No - Immunization History Tetanus Immunization: Unsure Hx Influenza Vaccine This Season: No Medications and Allergies Active Medications: Active Medications Acetaminophen (Tylenol) 650 mg PO Q4H PRN PRN Reason: Temp > 100.4 Al Hydroxide/Mg Hydroxide (Milk Of Magnesia Liq) 30 ml PO Q12H PRN PRN Reason: Mild Constipation Amlodipine Besylate (Norvasc) 5 mg PO DAILY [facility] Last Admin: 03/05/18 10:00 Dose: Not Given Bisacodyl (Dulcolax Supp) 10 mg RECTAL DAILY PRN PRN Reason: SEVERE CONSITIPATION Cyanocobalamin (Vitamin B12) 1,000 mcg PO DAILY [facility] Last Admin: 03/05/18 10:01 Dose: Not Given Flumazenil (Romazecon Inj) 0.2 mg IV.PUSH Q1M PRN PRN Reason: OVERSEDATION Furosemide (Lasix) 40 mg PO DAILY [facility] Last Admin: 03/05/18 10:00 Dose: Not Given Haloperidol Lactate (Haldol Inj) 1 mg IV.PUSH Q15M PRN PRN Reason: for severe agitation Sodium Chloride (Ns Inj) 250 mls @ 15 mls/hr IV.SIG ONCE MIKE Stop: 03/06/18 04:39 Ciprofloxacin/Dextrose (Cipro 400 Mg/200 Ml Inj) 400 mg in 200 mls @ 200 mls/ hr IV.SIG Q12H MIKE Lactulose (Lactulose Liq) 30 ml PO DAILY PRN PRN Reason: SEVERE CONSITIPATION Lorazepam (Ativan) 1 mg PO Q4H PRN PRN Reason: for CIWA 8-10 Lorazepam (Ativan) 2 mg PO Q2H PRN PRN Reason: for CIWA 11-14 Lorazepam (Ativan Inj) 2 mg IV.PUSH Q2H PRN PRN Reason: for CIWA 11-14 Lorazepam (Ativan Inj) 2 mg IV.PUSH Q1H PRN PRN Reason: for CIWA 15-20 Lorazepam (Ativan Inj) 2 mg IV.PUSH Q15M PRN PRN Reason: for CIWA > 20 Lorazepam (Ativan Inj) 1 mg IV.PUSH Q4H PRN PRN Reason: for CIWA 8-10 Multivitamins (Theragran) 1 tab PO DAILY [facility] Last Admin: 03/05/18 10:01 Dose: Not Given Ondansetron HCl (Zofran Inj) 4 mg IV.PUSH Q6H PRN PRN Reason: NAUSEA OR VOMITING Phytonadione (Mephyton Liq) 5 mg PO DAILY [facility] Last Admin: 03/05/18 10:00 Dose: Not Given Potassium Chloride (Klor-Con 8) 8 meq PO DAILY [facility] Last Admin: 03/05/18 10:00 Dose: Not Given Ropinirole HCl (Requip) 0.5 mg PO TID [facility] Last Admin: 03/05/18 10:00 Dose: Not Given Sennosides (Senokot) 17.2 mg PO Q12H PRN PRN Reason: Moderate Constipation Sodium Chloride (Ns Flush) 2 ml IV.FLUSH BID [facility] Last Admin: 03/05/18 10:00 Dose: 2 ml Sodium Chloride (Ns Flush) 2 ml IV.FLUSH PRN PRN PRN Reason: FLUSH AFTER USING IV ACCESS Spironolactone (Aldactone) 100 mg PO DAILY [facility] Last Admin: 03/05/18 10:00 Dose: Not Given Allergies Allergy/AdvReac Type Severity Reaction Status Date / Time cephalexin Allergy Unknown Hives Verified 03/04/18 15:18 penicillin G Allergy Unknown Hives Verified 03/04/18 15:18 codeine AdvReac Mild N/V Verified 03/04/18 15:18 Home Medications Medication Instructions Recorded Confirmed Type amlodipine 5 mg PO DAILY 03/04/18 03/04/18 History cyanocobalamin (vitamin B-12) 1,000 mcg PO DAILY 03/04/18 03/04/18 History [Vitamin B-12] furosemide [Lasix] 40 mg PO DAILY 03/04/18 03/04/18 History multivitamin 1 tab PO DAILY 03/04/18 03/04/18 History potassium 2.5 meq PO DAILY 03/04/18 03/04/18 History ropinirole 0.5 mg PO TID 03/04/18 03/04/18 History spironolactone 100 mg PO DAILY 03/04/18 03/04/18 History Exam Vital signs: Vital Signs 03/04/18 15:16 03/04/18 16:00 03/04/18 16:32 Temperature 98.4 F Pulse Rate 101 H 90 99 H Respiratory Rate 20 18 18 Blood Pressure 117/57 L 146/75 H 104/69 Pulse Oximetry 99 98 100 03/04/18 16:53 03/04/18 17:06 03/04/18 17:45 Temperature Pulse Rate 101 H 98 H Respiratory Rate 20 Blood Pressure 99/52 L Pulse Oximetry 97 98 03/04/18 18:46 03/04/18 19:54 03/04/18 20:31 Temperature Pulse Rate 101 H 95 H Respiratory Rate 20 15 Blood Pressure 120/69 111/52 L Pulse Oximetry 99 95 100 03/04/18 23:59 03/05/18 00:32 03/05/18 00:58 Temperature 98.0 F Pulse Rate 88 98 H Respiratory Rate 16 18 Blood Pressure 122/67 150/74 H Pulse Oximetry 96 97 97 03/05/18 01:02 03/05/18 01:45 03/05/18 03:22 Temperature 98.9 F Pulse Rate 105 H 96 H Respiratory Rate 18 Blood Pressure 112/69 Pulse Oximetry 97 97 03/05/18 04:00 03/05/18 08:00 Temperature 99.4 F Pulse Rate 94 H 92 H Respiratory Rate 18 Blood Pressure 121/66 Pulse Oximetry 97 Intake & Output 03/04/18 03/05/18 03/05/18 18:59 06:59 18:59 Intake Total 500 / 500 500 / 500 Output Total 875 / 875 250 / 250 Balance 500 / 500 -375 / -375 -250 / -250 Weight 71 kg 72.9 kg Intake: IV 500 / 500 500 / 500 NS Inj 1,000 ML @ 1000 mls/hr 500 / 500 500 / 500 IV.SIG BOLUS MIKE Rx#:[id number] Oral 0 / 0 Output: Urine 875 / 875 250 / 250 Other: # Voids 1 Date of Last Bowel Movement 03/04/18 03/04/18 03/04/18 # Bowel Movements 0 Weight On Admission 71 kg - Constitutional no acute distress, thin - Routine HEENT Exam Head: Present: normocephalic Eye: Present: conjunctival icterus - Routine Respiratory Exam Present: CTA bilaterally - Routine Cardiovascular Exam Present: RRR - Routine Abdominal Exam Present: soft, normoactive bowel sounds, distended, organomegaly, hernia - Routine Extremities Exam Absent: cyanosis, edema - Routine Skin Exam Present: intact, dry, jaundice, rash - Routine Neurological Exam Present: alert, oriented X3 Results - Labs CBC & Chem 7: 03/05/18 14:00 03/05/18 04:23 Labs: Laboratory Results - last 24 hr 03/04/18 03/04/18 03/04/18 15:35 15:35 15:35 CBC w Diff Slide review pending WBC 16.2 H RBC 2.68 L Hgb 9.3 L Hct 27.6 L MCV 103.2 H MCH 34.9 H MCHC 33.8 RDW 14.5 Plt Count 185 MPV 7.2 Prelim Diff (Auto) Neut % (Auto) 82.2 H Lymph % (Auto) 4.2 L [place] % (Auto) 12.7 H Eos % (Auto) 0.1 Baso % (Auto) 0.8 Neut # (Auto) 13.3 H Lymph # (Auto) 0.7 L [place] # (Auto) 2.1 H Eos # (Auto) 0.0 Baso # (Auto) 0.1 WBC Differential . Diff Scan Auto diff confirmed Differential Comment . Platelet Estimate Normal Platelet Morphology Normal PT 14.7 H INR 1.5 APTT 28.5 Sodium 120 L* Potassium 3.8 Chloride 85 L Carbon Dioxide 22.9 Anion Gap 12 BUN 10 Creatinine 0.51 L Estimated GFR Greater than 89 Random Glucose 109 H Osmolality Calcium 7.5 L Calcium Adj for Albumin Total Bilirubin 3.6 H AST 188 H ALT 87 H Alkaline Phosphatase 201 H Total Protein 6.3 L Albumin 2.5 L Urine Color Urine Clarity Urine pH Ur Specific [place] Urine Protein Urine Glucose (UA) Urine Ketones Urine Occult Blood Urine Nitrate Urine Bilirubin Urine Ictotest Urine Urobilinogen Ur Leukocyte Esterase Urine RBC Ur Squamous Epith Cells Ur Microscopic Review Blood Type Blood Type Recheck Antibody Screen MTS Gel Crossmatch 03/04/18 03/04/18 03/04/18 15:35 20:50 20:50 CBC w Diff WBC RBC Hgb 8.2 L Hct MCV MCH MCHC RDW Plt Count MPV Prelim Diff (Auto) Neut % (Auto) Lymph % (Auto) [place] % (Auto) Eos % (Auto) Baso % (Auto) Neut # (Auto) Lymph # (Auto) [place] # (Auto) Eos # (Auto) Baso # (Auto) WBC Differential Diff Scan Differential Comment Platelet Estimate Platelet Morphology PT INR APTT Sodium 121 L* Potassium Chloride Carbon Dioxide Anion Gap BUN Creatinine Estimated GFR Random Glucose Osmolality Calcium Calcium Adj for Albumin Total Bilirubin AST ALT Alkaline Phosphatase Total Protein Albumin Urine Color Urine Clarity Urine pH Ur Specific [place] Urine Protein Urine Glucose (UA) Urine Ketones Urine Occult Blood Urine Nitrate Urine Bilirubin Urine Ictotest Urine Urobilinogen Ur Leukocyte Esterase Urine RBC Ur Squamous Epith Cells Ur Microscopic Review Blood Type A Negative Blood Type Recheck Not needed Antibody Screen Negative MTS Gel Crossmatch 03/04/18 03/05/18 03/05/18 22:45 04:23 04:23 CBC w Diff WBC 12.4 H RBC 2.06 L Hgb 7.7 L Hct 21.0 L MCV 102.0 H MCH 37.5 H MCHC 36.8 H RDW 14.4 Plt Count 113 L D MPV 6.9 L Prelim Diff (Auto) Slide review pending Neut % (Auto) 75.8 H Lymph % (Auto) 6.5 L [place] % (Auto) 16.8 H Eos % (Auto) 0.8 Baso % (Auto) 0.1 Neut # (Auto) 9.4 H Lymph # (Auto) 0.8 L [place] # (Auto) 2.1 H Eos # (Auto) 0.1 Baso # (Auto) 0.0 WBC Differential . Diff Scan Auto diff confirmed Differential Comment . Platelet Estimate Platelet Morphology PT 17.8 H INR 1.8 APTT Sodium Potassium Chloride Carbon Dioxide Anion Gap BUN Creatinine Estimated GFR Random Glucose Osmolality Calcium Calcium Adj for Albumin Total Bilirubin AST ALT Alkaline Phosphatase Total Protein Albumin Urine Color Yellow Urine Clarity Clear Urine pH 6.0 Ur Specific [place] 1.020 Urine Protein Negative Urine Glucose (UA) Negative Urine Ketones 15 H Urine Occult Blood Trace Urine Nitrate Negative Urine Bilirubin Negative Urine Ictotest Negative Urine Urobilinogen 1.0 Ur Leukocyte Esterase Negative Urine RBC 0-3 Ur Squamous Epith Cells 0-5 Ur Microscopic Review Microscopic reviewed Blood Type Blood Type Recheck Antibody Screen MTS Gel Crossmatch 03/05/18 03/05/18 03/05/18 04:23 04:23 04:23 CBC w Diff WBC RBC Hgb Cancelled Hct MCV MCH MCHC RDW Plt Count MPV Prelim Diff (Auto) Neut % (Auto) Lymph % (Auto) [place] % (Auto) Eos % (Auto) Baso % (Auto) Neut # (Auto) Lymph # (Auto) [place] # (Auto) Eos # (Auto) Baso # (Auto) WBC Differential Diff Scan Differential Comment Platelet Estimate Platelet Morphology PT INR APTT Sodium 125 L Potassium 4.3 Chloride 90 L Carbon Dioxide 25.8 Anion Gap 9 BUN 14 Creatinine 0.46 L Estimated GFR Greater than 89 Random Glucose 85 Osmolality 256 L Calcium 7.4 L* Calcium Adj for Albumin 8.8 Total Bilirubin 3.4 H AST 146 H ALT 74 Alkaline Phosphatase 177 H Total Protein 5.4 L D Albumin 2.2 L Urine Color Urine Clarity Urine pH Ur Specific [place] Urine Protein Urine Glucose (UA) Urine Ketones Urine Occult Blood Urine Nitrate Urine Bilirubin Urine Ictotest Urine Urobilinogen Ur Leukocyte Esterase Urine RBC Ur Squamous Epith Cells Ur Microscopic Review Blood Type Blood Type Recheck Antibody Screen MTS Gel Crossmatch 03/05/18 11:36 CBC w Diff WBC RBC Hgb Hct MCV MCH MCHC RDW Plt Count MPV Prelim Diff (Auto) Neut % (Auto) Lymph % (Auto) [place] % (Auto) Eos % (Auto) Baso % (Auto) Neut # (Auto) Lymph # (Auto) [place] # (Auto) Eos # (Auto) Baso # (Auto) WBC Differential Diff Scan Differential Comment Platelet Estimate Platelet Morphology PT INR APTT Sodium Potassium Chloride Carbon Dioxide Anion Gap BUN Creatinine Estimated GFR Random Glucose Osmolality Calcium Calcium Adj for Albumin Total Bilirubin AST ALT Alkaline Phosphatase Total Protein Albumin Urine Color Urine Clarity Urine pH Ur Specific [place] Urine Protein Urine Glucose (UA) Urine Ketones Urine Occult Blood Urine Nitrate Urine Bilirubin Urine Ictotest Urine Urobilinogen Ur Leukocyte Esterase Urine RBC Ur Squamous Epith Cells Ur Microscopic Review Blood Type Blood Type Recheck Antibody Screen MTS Gel Crossmatch See Detail Assessment and Plan - Plan - Lower GI bleed for one week- This is described as daily, several times a day, bright red bleed. States he has hx of intermittent rectal bleed due to hemorrhoids but never this bad and never lasted this long. He attributes to eating hot wings. Initial hemoglobin was 9.3 but today is 7.7. He had EGD/ colonoscopy in 2016 with findings of esophageal varices, polyps, internal and external hemorrhoids. - Alcoholic cirrhosis- and reports he is still drinking a couple of drinks a day but diluted with ice and lemon. - Ascites- He is on Aldactone 100 and Lasix 40. - ?alcohol hepatitis- DF 34.7, will add Trental - alcohol abuse, counselled on cessation - Wt loss of over 50 lbs in the last 6 months due to change in diet and eating healthy. - Coagulopathy INR 1.8 - Hyponatremia- per attending - Leukocytosis- improving, on abx Plan: - Clears - EGD/colonoscopy in the am if INR <1.5 - Golytely today - FFP today and vit. K, - Will need paracentesis but will await scopes first and will need to normalize INR - Cont. diuretics and lactulose - CT - Add octreotide - Cont. cipro - Trental - Xifaxan - AFP, ammonia - Alcohol cessation - Monitor hh - Transfuse as needed - PPI - Case discussed with BARRY Blancas from [facility] - Pt seen and examined by Dr. Peralta and myself and this note is written on his behalf
[2018-03-05] MEDS ORDERED: Pantoprazole Inj 40 MG Vial IV.PUSH SCH (13:00)
[2018-03-05] MEDS: Ciprofloxacin 400 MG/200 ML 400 MG/200 ML PIGGYBACK IV.SIG SCH (14:47)
[2018-03-05] MEDS ORDERED: PEG 3350/E-Lyte Soln 4000 ML Bottle PO ONE (16:00)
[2018-03-05] MEDS ORDERED: Octreotide Inj 50 MCG/ML Vial IV.PUSH ONE (16:08)
[2018-03-05] MEDS ORDERED: Diatrizoate Meglum/Diatrizoate Sod Liq 9 ML UDC PO ONE ×2 (16:10→16:23)
[2018-03-05] MEDS: Pantoprazole Inj 40 MG Vial IV.PUSH SCH (16:30)
[2018-03-05] MEDS ORDERED: Octreotide Inj 500 MCG/ML Vial IV.CONT SCH (17:00)
--- NOTE | 2018-03-05 21:24 | CT ---
EXAM DATE: 03/05/2018 9:14 PM EST AGE/SEX: 47 years / Male INDICATIONS: Cirrhosis. Abdominal pain. CLINICAL DATA: This is the patient's initial encounter. Patient reports that signs and symptoms have been present for 1 day and indicates a pain score of 3/10. MEDICAL/SURGICAL HISTORY: Hypertension. Umbilical hernia. None. ORAL CONTRAST: Prescribed oral contrast ingested. RADIATION DOSE: 14.14 CTDI (mGy) COMPARISON: No prior exams available for comparison. TECHNIQUE: Multiple contiguous axial images were obtained through the abdomen and pelvis following b olus infusion of 95 ml Omnipaque 350 (iohexol) nonionic water-soluble contrast as a single exam dos e. Prescribed oral contrast ingested. Using automated exposure control and adjustment of the mA and/ or kV according to patient size, radiation dose was kept as low as reasonably achievable to obtain op timal diagnostic quality images. DICOM format image data is available electronically for review and comparison. FINDINGS: The lower lungs are clear. The liver is small nodular and shrunken with moderate ascites. Moderate ar tifact is present across liver I do not see a definite mass. Examination is not tailored to exclude s uch. Multiple gallstones are present in the gallbladder. Spleen is prominent. There is moderate mesen teric edema present involving a sending colon mesentery and small bowel. There is umbilical hernia pr esent with protruding umbilicus. There is symmetrical renal function. Portal vein appears patent. There are varicosities around the st omach. I don't see definite abdominal wall and lack of body fat makes detection of such difficult. Pelvic contents unremarkable exception of significant ascites.. CONCLUSION: 1. Tense ascites with small shrunken nodular liver consistent with cirrhosis. 2. Moderate varicosities are evident. 3. I have no prior studies for comparison. 4. There is no free air. Electronically signed by: Brandyn Hines MD Board Certified Radiologist 03/05/2018 9:23 PM EST
[2018-03-05] MEDS: Octreotide Inj 500 MCG in Sodium Chlor 0.9% Inj 500 ML IV.CONT SCH (22:05)
[2018-03-05] MEDS: Sod Chloride 0.9% Inj 1,000 ML IV.CONT SCH (22:06)
[2018-03-05] MEDS: Pentoxifylline 400 MG Controlled Release Tablet PO SCH (22:40)
[2018-03-05] MEDS: rifAXIMin 550 MG Tablet PO SCH (22:40)
[2018-03-06] MEDS: Ciprofloxacin 400 MG/200 ML 400 MG/200 ML PIGGYBACK IV.SIG SCH ×2 (00:10→12:32)
[2018-03-06] MEDS: Sod Chloride 0.9% Inj 1,000 ML IV.CONT SCH ×2 (01:11→14:01)
[2018-03-06] MEDS: Pantoprazole Inj 40 MG Vial IV.PUSH SCH ×2 (03:36→14:03)
[2018-03-06 05:21] LABS: Hematocrit 22.5 % (39.0-51.0); Hemoglobin 8.3 gm/dL (13.0-17.0); Mean Corpuscular Hemoglobin 36.9 pg (27.0-34.0); Mean Corpuscular Volume 99.7 fL (80.0-100.0); Mean Platelet Volume 6.7 fL (7.0-11.0); Platelet Count 94 th/mm3 (150-450); Red Blood Count 2.25 mil/mm3 (4.50-5.90); Red Cell Distribution Width 16.6 % (11.6-17.2); White Blood Count 10.2 th/mm3 (4.0-11.0)
[2018-03-06 05:28] LABS: INR 1.5 Ratio; Prothrombin Time 15.1 sec (9.8-11.6)
[2018-03-06 06:03] LABS: Alpha Fetoprotein Tumor Marker 4.5 ng/mL (0.5-8.0); Anion Gap 10 meq/L (5-15); Blood Urea Nitrogen 11 mg/dL (7-18); Calcium 7.3 mg/dL (8.5-10.1); Carbon Dioxide 27.2 meq/L (21.0-32.0); Chloride 90 meq/L (98-107); Glomerular Filtration Rate Greater Than 89 mL/min (>89); Glucose,Random 94 mg/dL (74-106); Potassium 3.4 meq/L (3.5-5.1); Sodium 127 meq/L (136-145)
[2018-03-06 06:11] LABS: Albumin 2.3 g/dL (3.4-5.0); Calcium-Albumin Corrected 8.7 mg/dL (8.5-10.1)
[2018-03-06] MEDS: Calcium Gluconate Inj 1 GM in Dextrose 5% in Water Inj 100 ML IV.SIG ONE ×4 (10:16→14:01)
[2018-03-06] MEDS: amLODIPine 5 MG Tablet PO SCH (10:17)
[2018-03-06] MEDS: Furosemide 40 MG Tablet PO SCH ×2 (10:17→12:31)
[2018-03-06] MEDS: Pentoxifylline 400 MG Controlled Release Tablet PO SCH ×2 (10:17→22:13)
[2018-03-06] MEDS: Phytonadione 5 MG/SWFI 5 ML Oral Syringe PO SCH (10:17)
[2018-03-06] MEDS: rifAXIMin 550 MG Tablet PO SCH ×2 (10:18→22:12)
--- NOTE | 2018-03-06 10:20 | GIPROC ---
[facility] [address] [facility]. [facility], [id number] EGD PROCEDURE REPORT EXAM DATE: 03/06/2018 PATIENT NAME: Kitty Melgar MR #: [id number] BIRTHDATE: 1970 ATTENDING: Quinn Peralta MD ORDER #: [id number] LOCOMOTIVE LUBRICATING SYSTEMS CLERK: Tod Shepherd and Janet Friend STATUS: inpatient INDICATIONS: The patient is a 47 yr old male here for an EGD due to Cirrhosis and melena PROCEDURE PERFORMED: EGD w/ band ligation of varices MEDICATIONS: Per Anesthesia and None. TOPICAL ANESTHETIC: CONSENT: The patient understands the risks and benefits of the procedure and understands that these risks include, but are not limited to: sedation, allergic reaction, infection, perforation and/or bleeding. Alternative means of evaluation and treatment include, among others: physical exam, x-rays, and/or surgical intervention. The patient elects to proceed with this endoscopic procedure. medical equipment was checked for proper function. Hand hygiene and appropriate measures for infection prevention was taken. After the risks, benefits and alternatives of the procedure were thoroughly explained, Informed consent was verified, confirmed and timeout was successfully executed by the treatment team. The patient was anesthetized with topical anesthesia and the EC-3490Li (Pedi C) endoscope was introduced through the mouth and advanced to the second portion of the duodenum. Retroflexed views revealed No GV The gastroscope was then slowly withdrawn and removed. STOMACH: Moderate portal hypertensive gastropathy was found in the entire examined stomach. ESOPHAGUS: There were 3 columns of large varices in the distal esophagus. The varices were not bleeding. There was evidence of prior scarring, a red so sign and a perez spot sign. DUODENUM: The duodenal mucosa appeared normal in the entire duodenum. ADVERSE EVENTS: There were no complications. IMPRESSIONS: Retroflexed views revealed No GV RECOMMENDATIONS: See Orders PATIENT CONDITION: stable DISPOSITION: Inpatient REPEAT EXAM: Return 4 weeks EGD Quinn Peralta MD eSigned: Quinn Peralta MD 03/06/2018 10:20 AM cc: PATIENT NAME: Kitty Melgar MR#: [id number]
--- NOTE | 2018-03-06 10:23 | GIPROC ---
[facility] [address] [facility]. [facility], [id number] COLONOSCOPY PROCEDURE REPORT EXAM DATE: 03/06/2018 PATIENT NAME: Kitty Melgar MR #: [id number] BIRTHDATE: 1970 ENDOSCOPIST: Quinn Peralta MD ORDER #: [id number] BLOCK BREAKER OPERATOR: Tod Shepherd and Janet Friend STATUS: inpatient INDICATIONS: The patient is a 47 yr old male here for a colonoscopy due to melena and rectal bleeding PROCEDURE PERFORMED: Colonoscopy with biopsy MEDICATIONS: Per Anesthesia and None. PREP QUALITY: fair ESTIMATED BLOOD LOSS: None CONSENT: The patient understands the risks and benefits of the procedure and understands that these risks include, but are not limited to: sedation, allergic reaction, infection, perforation and/or bleeding. Alternative means of evaluation and treatment include, among others: physical exam, x-rays, and/or surgical intervention. The patient elects to proceed with this endoscopic procedure. medical equipment was checked for proper function. Hand hygiene and appropriate measures for infection prevention was taken. After the risks, benefits and alternatives of the procedure were thoroughly explained, Informed consent was verified, confirmed and timeout was successfully executed by the treatment team. A digital exam was performed, revealed external hemorrhoids, and revealed internal hemorrhoids The Pentax EC-3490Li endoscope was introduced through the anus and advanced to the cecum, which was identified by both the appendix and ileocecal valve. The instrument was then slowly withdrawn as the colon was fully examined. COLON FINDINGS: Two flat polyps ranging between 3-5mm in size were found in the descending colon. A polypectomy was performed with cold forceps. Large rectal varices. Retroflexion was not performed The scope was then completely withdrawn from the patient and the procedure terminated. PROCEDURE WITHDRAWAL TIME:10minutes ADVERSE EVENTS: There were no complications. IMPRESSIONS: 1. Two flat polyps ranging between 3-5mm in size were found in the descending colon; polypectomy was performed with cold forceps 2. Large rectal varices 3. Retroflexion was not performed 4. Was performed 5. Revealed external hemorrhoids 6. Revealed internal hemorrhoids RECOMMENDATIONS: Await biopsy results. Biopsy results will not be ready for 7-10 days. If you don't hear from us in two weeks, call our office for results. RECALL: Return 3 years Colonoscopy Quinn Peralta MD eSigned: Quinn Peralta MD 03/06/2018 10:22 AM cc:
--- NOTE | 2018-03-06 13:37 | P.PN ---
Subjective Interval history: Follow-up visit for cirrhosis, GI bleed and hyponatremia. Patient seen and examined sitting up in bed with family at bedside. He complains of some throat soreness after procedure, no further bleeding noted. Patient reports that he is not on the correct diet for his liver. States that all of the food that he has been receiving is riddled with toxins which his liver cannot process. He denies any shortness of breath, cough, fevers, chills, nausea or vomiting. Physical Exam Vital signs: Vital Signs 03/05/18 16:00 03/05/18 17:13 03/05/18 17:32 Temperature 98.8 F 98.8 F 98.3 F Pulse Rate 96 H 97 H 96 H Respiratory Rate 20 18 18 Blood Pressure 120/67 113/69 129/72 Pulse Oximetry 99 96 96 03/05/18 20:00 03/05/18 20:41 03/05/18 21:35 Temperature 98.6 F 98.7 F Pulse Rate 81 92 H 89 Respiratory Rate 18 18 Blood Pressure 118/70 126/75 Pulse Oximetry 99 03/05/18 21:50 03/06/18 00:00 03/06/18 00:18 Temperature 98.4 F 98 F Pulse Rate 79 82 82 Respiratory Rate 18 17 Blood Pressure 130/74 117/68 Pulse Oximetry 98 03/06/18 04:00 03/06/18 04:15 03/06/18 08:00 Temperature 97.9 F 98.6 F Pulse Rate 81 78 83 Respiratory Rate 18 18 Blood Pressure 105/50 L 98/58 L Pulse Oximetry 94 L 96 03/06/18 10:23 03/06/18 10:37 03/06/18 10:51 Temperature 98.9 F Pulse Rate 74 78 74 Respiratory Rate 20 18 18 Blood Pressure 124/77 107/65 102/67 Pulse Oximetry 100 96 95 03/06/18 12:00 Temperature 97.8 F Pulse Rate 76 Respiratory Rate 18 Blood Pressure 137/67 Pulse Oximetry 95 Intake & Output 03/05/18 03/06/18 03/06/18 18:59 06:59 18:59 Intake Total 920 / 920 5668 / 5668 400 / 400 Output Total 250 / 250 275 / 275 Balance 670 / 670 5393 / 5393 400 / 400 Weight 72.8 kg Intake: IV 200 / 200 700 / 700 Cipro 400 MG/200 ML Inj 400 mg 200 / 200 200 / 200 In 200 ml @ 200 mls/hr IV.SIG Q12H MIKE Rx#:[id number] NS Inj 250 ML @ 15 mls/hr IV. 500 / 500 SIG ONCE MIKE Rx#:[id number] Oral 720 / 720 4250 / 4250 Anesthesia Amount 400 / 400 Other 0 / 0 Rbc As-3 Leukoreduced Unit 0 / 0 [id number] Intake (Blood Product) Amt 0 / 0 718 / 718 Plasma Thawed 5 Day Cp2d Unit 318 / 318 [id number] Rbc As-3 Leukoreduced Unit 0 / 0 400 / 400 [id number] Output: Urine 250 / 250 275 / 275 Other: # Voids 2 1 Date of Last Bowel Movement 03/04/18 03/05/18 # Bowel Movements 1 4 Narrative: GENERAL: Well-developed, thin male sitting up in bed in no acute distress. SKIN: No ecchymoses, upper chest telangiectasias. Cool and dry. Bilateral upper extremity erythematous rash (chronic). HEAD: Atraumatic. Normocephalic. EYES: No scleral icterus. No injection or drainage. ENT: Nose without bleeding, purulent drainage. NECK: Trachea midline. CARDIOVASCULAR: Regular rate and rhythm without murmurs, gallops, or rubs. RESPIRATORY: Clear to auscultation. Breath sounds equal bilaterally. No wheezes , rales, or rhonchi. GASTROINTESTINAL: Abdomen round, distended, ascites. No guarding. + Bowel sounds. MUSCULOSKELETAL: Extremities without clubbing, cyanosis, or edema. NEUROLOGICAL: Awake and alert, oriented x3. Motor and sensory grossly within normal limits. Normal speech. Results - Labs CBC & Chem 7: 03/06/18 05:02 03/06/18 05:02 Laboratory Results - last 24 hr 03/05/18 03/05/18 03/05/18 09:48 11:36 12:06 WBC RBC Hgb Hct MCV MCH MCHC RDW Plt Count MPV PT INR Sodium Potassium Chloride Carbon Dioxide Anion Gap BUN Creatinine Estimated GFR Random Glucose Calcium Calcium Adj for Albumin Ammonia Albumin Tumor Marker AFP Urine Osmolality 460 MTS Gel Crossmatch See Detail Blood Bank Comment 03/05/18 03/05/18 03/06/18 14:00 23:02 05:02 WBC 10.2 RBC 2.25 L Hgb 8.4 L 8.8 L 8.3 L Hct 22.5 L MCV 99.7 MCH 36.9 H MCHC 37.0 H RDW 16.6 Plt Count 94 L MPV 6.7 L PT INR Sodium Potassium Chloride Carbon Dioxide Anion Gap BUN Creatinine Estimated GFR Random Glucose Calcium Calcium Adj for Albumin Ammonia Albumin Tumor Marker AFP Urine Osmolality MTS Gel Crossmatch Blood Bank Comment 03/06/18 03/06/18 03/06/18 05:02 05:02 05:02 WBC RBC Hgb Hct MCV MCH MCHC RDW Plt Count MPV PT 15.1 H INR 1.5 Sodium 127 L Potassium 3.4 L D Chloride 90 L Carbon Dioxide 27.2 Anion Gap 10 BUN 11 Creatinine 0.53 L Estimated GFR Greater than 89 Random Glucose 94 Calcium 7.3 L* Calcium Adj for Albumin 8.7 Ammonia 25 Albumin 2.3 L Tumor Marker AFP 4.5 Urine Osmolality MTS Gel Crossmatch Blood Bank Comment - Imaging Impressions Abdomen/Pelvis CT 03/05/18 00:00 CONCLUSION: 1. Tense ascites with small shrunken nodular liver consistent with cirrhosis. 2. Moderate varicosities are evident. 3. I have no prior studies for comparison. 4. There is no free air. Assessment and Plan - Plan Mr. Melgar is a 47-year-old male with a history of alcohol abuse, cirrhosis, and hypertension who presented to the emergency room and [place] complaining of bleeding hemorrhoids over the past week with subsequent progressively worsening fatigue and weakness. Initial hemoglobin was 9.3 with repeat of 8.2. The patient was admitted to the hospitalist service and transferred from [place] to [facility]. Acute symptomatic anemia GI bleed -Significant hemorrhoids -Internal and external hemorrhoids and large rectal varices found on colonoscopy 2 years ago according to the EMR 05/09/15 -H&H 7.7/21.1 s/p 1unti PRBC's, H&H 8.3/22.5. -Consult gastroenterology-appreciate assistance - IV Cipro prophylactically given history of cirrhosis - 03/06 EGD: 3 columns of large varices in distal esophagus, nonbleeding. Evidence of prior scarring, red so sign and perez spot sign. Recommended repeat 4-week EGD -Start low-dose propranolol 3 times daily and monitor BP -Colonoscopy 12/14: Flat polyps in descending colon; polypectomy. Large rectal varices, external and internal hemorrhoids. Recommend repeat colonoscopy in 3 years per Liver Cirrhosis with coagulopathy Alcohol abuse Ascites -LFT's improved -s/p 1 unit FFP 03/05, INR 1.5, continue vitamin K -Avoid hepatotoxic medications, ammonia stable -CIWA protocol -Increase in ascites noted, DC IV fluids -Check abdominal ultrasound for possible paracentesis Leukocytosis -back to normal Hyponatremia likely related to potomania vs SIADH -Serum osmolality 256 low, urine osmolality stable -s/p fluids, NA improved - NA levels improved 127 - Continue monitoring levels DVT prophylaxis -Chemoprophylaxis contraindicated due to GI bleeding -SCDs Discussed Condition With: Patient, RN, family at bedside.
[2018-03-06] MEDS: Octreotide Inj 500 MCG in Sodium Chlor 0.9% Inj 500 ML IV.CONT SCH (14:02)
--- NOTE | 2018-03-06 17:19 | US ---
EXAM DATE: 03/06/2018 5:15 PM EST AGE/SEX: 47 years / Male INDICATIONS: Ascites. CLINICAL DATA: This is the patient's initial encounter. Patient reports that signs and symptoms have been present for 1 month and indicates a pain score of 1/10. MEDICAL/SURGICAL HISTORY: Hypertension. ETOH abuse. Cirrhosis. Umbilical hernia. None. COMPARISON: No prior exams available for comparison. FINDINGS: Masses: None Fluid Collections: Small amount of ascites in the abdomen. Other: None. CONCLUSION: 1. Small amount of ascites in the abdomen. Insufficient for drainage. Electronically signed by: Hermes Walsh MD Board Certified Radiologist 03/06/2018 5:17 PM EST
[2018-03-06] MEDS: Propranolol 10 MG Tablet PO SCH (18:15)
[2018-03-07] MEDS: Ciprofloxacin 400 MG/200 ML 400 MG/200 ML PIGGYBACK IV.SIG SCH ×2 (00:50→12:43)
[2018-03-07] MEDS: Pantoprazole Inj 40 MG Vial IV.PUSH SCH ×2 (02:29→16:25)
[2018-03-07 07:15] LABS: Baso # (Auto) 0.1 th/mm3 (0.0-0.2); Baso % (Auto) 0.4 % (0.0-2.0); Eos # (Auto) 0.3 th/mm3 (0.0-0.4); Eos % (Auto) 2.2 % (0.0-4.0); Hematocrit 27.1 % (39.0-51.0); Hemoglobin 9.7 gm/dL (13.0-17.0); Lymph # (Auto) 0.9 th/mm3 (1.0-4.8); Mean Corpuscular HGB Conc 35.7 % (32.0-36.0); Mean Corpuscular Hemoglobin 36.5 pg (27.0-34.0); Mean Corpuscular Volume 102.3 fL (80.0-100.0); Mean Platelet Volume 6.8 fL (7.0-11.0); Mono # (Auto) 1.5 th/mm3 (0.0-0.9); Mono % (Auto) 11.9 % (0.0-8.0); Neut % (Auto) 78.5 % (16.0-70.0); Platelet Count 146 th/mm3 (150-450); Red Blood Count 2.65 mil/mm3 (4.50-5.90); Red Cell Distribution Width 17.5 % (11.6-17.2); White Blood Count 12.7 th/mm3 (4.0-11.0)
[2018-03-07 07:18] LABS: INR 1.4 Ratio; Prothrombin Time 14.6 sec (9.8-11.6)
[2018-03-07 07:35] LABS: Albumin 2.5 g/dL (3.4-5.0); Anion Gap 8 meq/L (5-15); Aspartate Aminotransferase 123 U/L (15-37); Blood Urea Nitrogen 11 mg/dL (7-18); Calcium 7.6 mg/dL (8.5-10.1); Carbon Dioxide 26.7 meq/L (21.0-32.0); Chloride 90 meq/L (98-107); Glomerular Filtration Rate Greater Than 89 mL/min (>89); Glucose,Random 99 mg/dL (74-106); Potassium 3.5 meq/L (3.5-5.1); Sodium 125 meq/L (136-145)
[2018-03-07 07:37] LABS: Alanine Aminotransferase 75 U/L (12-78)
[2018-03-07 07:39] LABS: Alkaline Phosphatase 169 U/L (45-117); Total Protein 5.7 g/dL (6.4-8.2)
[2018-03-07] MEDS: Propranolol 10 MG Tablet PO SCH ×4 (09:53→17:44)
[2018-03-07] MEDS: Pentoxifylline 400 MG Controlled Release Tablet PO SCH ×2 (09:53→22:03)
[2018-03-07] MEDS: Phytonadione 5 MG/SWFI 5 ML Oral Syringe PO SCH (09:53)
[2018-03-07] MEDS: Furosemide 40 MG Tablet PO SCH ×2 (09:53→09:59)
[2018-03-07] MEDS: rifAXIMin 550 MG Tablet PO SCH ×2 (09:57→22:03)
[2018-03-07] MEDS: Octreotide Inj 500 MCG in Sodium Chlor 0.9% Inj 500 ML IV.CONT SCH (12:43)
--- NOTE | 2018-03-07 16:02 | P.PNIM ---
Subjective Interval history: Patient is seen walking around the room. He tells me he just "exploded" in the bathroom. Denies bloody or tarry stool. Continues to complain that his food is full of toxins and this is the reason for his liver and abdominal problems. Nursing reports no adverse events. Physical Exam Vital signs: Last Vital Signs Temp 97.7 F 03/07/18 11:59 Pulse 58 L 03/07/18 11:59 Resp 18 03/07/18 11:59 BP 119/66 03/07/18 11:59 Pulse Ox 94 L 03/07/18 11:59 Intake & Output 03/05/18 03/06/18 03/07/18 03/08/18 06:59 06:59 06:59 06:59 Intake Total 1000 / 1000 6588 / 6588 2910.5 / 2910.5 700.5 / 700.5 Output Total 875 / 875 525 / 525 Balance 125 / 125 6063 / 6063 2910.5 / 2910.5 700.5 / 700.5 Weight 72.9 kg 72.8 kg 71.8 kg Narrative: GENERAL: Well-developed, thin male in no acute distress. SKIN: No ecchymoses, upper chest telangiectasias. Cool and dry. Bilateral upper extremity erythematous rash (chronic). HEAD: Atraumatic. Normocephalic. CARDIOVASCULAR: Regular rate and rhythm. RESPIRATORY: Clear to auscultation. Breath sounds equal bilaterally. No wheezes , rales, or rhonchi. GASTROINTESTINAL: Abdomen round, distended, ascites. No guarding. + Bowel sounds. MUSCULOSKELETAL: Extremities without clubbing, cyanosis, or edema. NEUROLOGICAL: Awake and alert, oriented x3. Motor and sensory grossly within normal limits. Normal speech. Results Labs CBC & Chem 7: 03/07/18 05:32 03/07/18 05:32 Imaging Imaging: Impressions Abdomen Ultrasound 03/06/18 00:00 CONCLUSION: 1. Small amount of ascites in the abdomen. Insufficient for drainage. Assessment and Plan Plan Mr. Melgar is a 47-year-old male with a history of alcohol abuse, cirrhosis, and hypertension who presented to the emergency room and [place] complaining of bleeding hemorrhoids over the past week with subsequent progressively worsening fatigue and weakness. Initial hemoglobin was 9.3 with repeat of 8.2. The patient was admitted to the hospitalist service and transferred from [place] to [facility]. Acute symptomatic anemia GI bleed -Significant hemorrhoids -Internal and external hemorrhoids and large rectal varices found on colonoscopy 2 years ago according to the EMR 05/09/15 -H&H 7.7/21.1 s/p 1unti PRBC's, repeat H&H 8.3/22.5. -Consult gastroenterology-appreciate assistance - IV Cipro prophylactically given history of cirrhosis - 03/06 EGD: 3 columns of large varices in distal esophagus, nonbleeding. Evidence of prior scarring, red so sign and perez spot sign. Recommended repeat 4-week EGD -Start low-dose propranolol 3 times daily and monitor BP -Colonoscopy 03/06: Flat polyps in descending colon; polypectomy. Large rectal varices, external and internal hemorrhoids. Recommend repeat colonoscopy in 3 years per Liver Cirrhosis with coagulopathy Alcohol abuse Ascites -LFT's improved -s/p 1 unit FFP 03/05, INR 1.5, continue vitamin K -Avoid hepatotoxic medications, ammonia stable -CIWA protocol -Increase in ascites noted, DC IV fluids -Check abdominal ultrasound for possible paracentesis -insufficient fluid for drainage found Leukocytosis -back to normal Hyponatremia likely related to potomania vs SIADH -Serum osmolality 256 low, urine osmolality stable -s/p fluids, NA improved - Continue monitoring levels DVT prophylaxis -Chemoprophylaxis contraindicated due to GI bleeding -SCDs Discussed Condition With: Patient, RN, family at bedside. Discharge planning: Likely home once cleared by GI Progress Note: Quality VTE Deep Vein Thrombosis/Pulmonary Embolism Present on Admission: No
[2018-03-08] MEDS: Ciprofloxacin 400 MG/200 ML 400 MG/200 ML PIGGYBACK IV.SIG SCH (00:03)
[2018-03-08] MEDS: Pantoprazole Inj 40 MG Vial IV.PUSH SCH (02:12)
[2018-03-08] MEDS: Octreotide Inj 500 MCG in Sodium Chlor 0.9% Inj 500 ML IV.CONT SCH (05:33)
--- NOTE | 2018-03-08 08:17 | P.PNIM ---
Subjective Interval history: Patient seen sitting in bed. Denies any new bleeding. No shortness of breath or chest pain. No nausea vomiting or diarrhea. Continues to have some abdominal distention and discomfort but no significant increase. Physical Exam Vital signs: Last Vital Signs Temp 98.2 F 03/08/18 04:55 Pulse 70 03/08/18 04:55 Resp 16 03/08/18 04:55 BP 100/58 L 03/08/18 05:30 Pulse Ox 95 03/08/18 04:55 Intake & Output 03/06/18 03/07/18 03/08/18 03/09/18 06:59 06:59 06:59 06:59 Intake Total 6588 / 6588 2910.5 / 2910.5 3342.0 / 3342.0 Output Total 525 / 525 1000 / 1000 Balance 6063 / 6063 2910.5 / 2910.5 2342.0 / 2342.0 Weight 72.8 kg 71.8 kg 77.6 kg Narrative: GENERAL: Well-developed, thin male in no acute distress. SKIN: No ecchymoses, upper chest telangiectasias. Cool and dry. Bilateral upper extremity erythematous rash (chronic). HEAD: Atraumatic. Normocephalic. CARDIOVASCULAR: Regular rate and rhythm. RESPIRATORY: Clear to auscultation. Breath sounds equal bilaterally. No wheezes , rales, or rhonchi. GASTROINTESTINAL: Abdomen round, distended, ascites. No guarding. + Bowel sounds. MUSCULOSKELETAL: Extremities without clubbing, cyanosis, or edema. NEUROLOGICAL: Awake and alert, oriented x3. Motor and sensory grossly within normal limits. Normal speech. Results Labs CBC & Chem 7: 03/07/18 05:32 03/07/18 05:32 Assessment and Plan Plan Mr. Melgar is a 47-year-old male with a history of alcohol abuse, cirrhosis, and hypertension who presented to the emergency room and [place] complaining of bleeding hemorrhoids over the past week with subsequent progressively worsening fatigue and weakness. Initial hemoglobin was 9.3 with repeat of 8.2. The patient was admitted to the hospitalist service and transferred from [place] to [facility]. Acute symptomatic anemia GI bleed -Significant hemorrhoids -Internal and external hemorrhoids and large rectal varices found on colonoscopy 2 years ago according to the EMR 05/09/15 -H&H 7.7/21.1 s/p 1unti PRBC's, repeat H&H 8.3/22.5. -Consult gastroenterology-appreciate assistance - IV Cipro prophylactically given history of cirrhosis - 03/06 EGD: 3 columns of large varices in distal esophagus, nonbleeding. Evidence of prior scarring, red so sign and perez spot sign. Recommended repeat 4-week EGD -Start low-dose propranolol 3 times daily and monitor BP; tolerating well -Colonoscopy 03/06: Flat polyps in descending colon; polypectomy. Large rectal varices, external and internal hemorrhoids. Recommend repeat colonoscopy in 3 years per Liver Cirrhosis with coagulopathy Alcohol abuse Ascites -LFT's improved -s/p 1 unit FFP 03/05, INR 1.5, continue vitamin K -Avoid hepatotoxic medications, ammonia stable -CIWA protocol -Increase in ascites noted, DC IV fluids -Check abdominal ultrasound for possible paracentesis -insufficient fluid for drainage found. Should be followed outpatient Leukocytosis -back to normal Hyponatremia likely related to potomania vs SIADH -Serum osmolality 256 low, urine osmolality stable -s/p fluids, NA improved - Continue monitoring levels DVT prophylaxis -Chemoprophylaxis contraindicated due to GI bleeding -SCDs Discussed Condition With: Patient, RN, family at bedside. Discharge planning: Home today with outpt GI f/u Progress Note: Quality VTE Deep Vein Thrombosis/Pulmonary Embolism Present on Admission: No
--- NOTE | 2018-03-08 08:27 | P.DS ---
DS: Providers Date of admission: 03/04/18 19:58 Primary care physician: UNKNOWN Consults: 03/04/18 20:15 Consult to Gastroenterology Routine Consulting Provider: Quinn Peralta V Reason for Consultation: GI Bleed Notified:: Service Spoke with:: harish Date Notified:: 03/04/18 Time Notified:: 22:31 Ordering Provider: PAPA Brief History from admission: Mr. Melgar is a 47-year-old male with a history of alcohol abuse, cirrhosis, and hypertension who presented to the emergency room and [facility] complaining of bleeding hemorrhoids over the past week with subsequent progressively worsening fatigue and weakness. Initial hemoglobin was 9.3 with repeat of 8.2. The patient was admitted to the hospitalist service and transferred from [facility] to [facility]. The patient is seen in his hospital room. He is very soft-spoken and his mother is at the bedside. He reports about a week history of intermittent rectal bleeding. The patient had severe bleeding at home and soaked multiple bath towels there. He has had hemorrhoids over the past several years but over the past few years have gotten worse. He had a colonoscopy 2 years ago with findings of internal and external hemorrhoids. He has a history of alcohol abuse and reports he is still drinking. Denies any family history of liver disease. He states that other than the above-stated symptoms, he has been in decent health with no fevers, chills, chest pain, shortness of breath, nausea, vomiting, or diarrhea. DS: Diagnosis Discharge Diagnosis (1) GI bleed: Status: Resolved (2) EtOH dependence: Status: Chronic (3) Cirrhosis of liver: Status: Chronic (4) Hyponatremia: Status: Chronic DS: Summary Mr. Melgar is a 47-year-old male with a history of alcohol abuse, cirrhosis, and hypertension who presented to the emergency room and [facility] complaining of bleeding hemorrhoids over the past week with subsequent progressively worsening fatigue and weakness. Initial hemoglobin was 9.3 with repeat of 8.2. The patient was admitted to the hospitalist service and transferred from [facility] to [facility]. Hemoglobin was stabilized with 1 unit of packed red blood cells. Internal and external hemorrhoids and large rectal varices found on colonoscopy 2 years ago according to the EMR. IV Cipro prophylactically given history of cirrhosis. 03/06/18 EGD: 3 columns of large varices in distal esophagus, nonbleeding. Evidence of prior scarring, red so sign and perez spot sign. Recommended repeat 4-week EGD. Colonoscopy 03/06: Flat polyps in descending colon; polypectomy. Large rectal varices, external and internal hemorrhoids. Recommend repeat colonoscopy in 3 years per. Started low-dose propranolol 3 times daily and monitor BP; tolerated well. Liver Cirrhosis with coagulopathy directly related to EtOH abuse. Patient received 1 unit FFP 03/05 and vitamin K with moderate improvement. Abdominal ultrasound done for possible paracentesis -insufficient fluid for drainage found. Should be followed outpatient. Hyponatremia likely related to potomania. Serum osmolality 256 low, urine osmolality stable. Given IV fluids, NA improved. Sodium level should be followed outpatient by primary. Time Spent with Patient Total time spent providing and/or coordinating discharge services: <30 min Quality: VTE Deep Vein Thrombosis/Pulmonary Embolism Present on Admission: No Exam Narrative Exam Narrative: GENERAL: Well-developed, thin male in no acute distress. SKIN: No ecchymoses, upper chest telangiectasias. Cool and dry. Bilateral upper extremity erythematous rash (chronic). HEAD: Atraumatic. Normocephalic. CARDIOVASCULAR: Regular rate and rhythm. RESPIRATORY: Clear to auscultation. Breath sounds equal bilaterally. No wheezes , rales, or rhonchi. GASTROINTESTINAL: Abdomen round, distended, ascites. No guarding. + Bowel sounds. MUSCULOSKELETAL: Extremities without clubbing, cyanosis, or edema. NEUROLOGICAL: Awake and alert, oriented x3. Motor and sensory grossly within normal limits. Normal speech. Results Pending studies at discharge: Pending at discharge 03/06/18 11:34 Surgical [PTH] Routine Impressions ITS Impressions Abdomen/Pelvis CT 03/05/18 00:00 CONCLUSION: 1. Tense ascites with small shrunken nodular liver consistent with cirrhosis. 2. Moderate varicosities are evident. 3. I have no prior studies for comparison. 4. There is no free air. Abdomen Ultrasound 03/06/18 00:00 CONCLUSION: 1. Small amount of ascites in the abdomen. Insufficient for drainage. Discharge Plan Discharge Disposition Patient Disposition: Discharge Home Discharge Condition Condition: Stable Discharge Order Discharge Orders: Discharge Order (Routine); Ordered 03/08/18 Ordered By: Kiana Robins ED Use Only Admit Order (Routine); Ordered 03/04/18 Ordered By: Hong Polanco Discharge Details Anticipated Discharge Date: 03/08/18 Physicians Team ED Provider: Hong Polanco Primary Care Provider: UNKNOWN, Attending Provider: Liss Ortega Other Providers: Quinn Peralta V Rxs /Orders / Referrals /Forms Prescriptions: New propranolol 10 mg Tablet 10 mg PO TID Qty: 90 RF: 0 Continue multivitamin Tablet 1 tab PO DAILY RF: 0 furosemide [Lasix] 40 mg Tablet 40 mg PO DAILY RF: 0 cyanocobalamin (vitamin B-12) [Vitamin B-12] 1,000 mcg Tablet 1,000 mcg PO DAILY RF: 0 amlodipine 2.5 mg Tablet 5 mg PO DAILY RF: 0 spironolactone 25 mg Tablet 100 mg PO DAILY RF: 0 potassium 99 mg Tablet 2.5 meq PO DAILY RF: 0 ropinirole 0.25 mg Tablet 0.5 mg PO TID RF: 0 Referrals: [facility] [Outside] - See Instructions Quinn Peralta MD [Physician] - See Instructions Discharge Instructions Patient Printed Instructions: Cirrhosis (GEN), Ascites (GEN), Alcohol Dependence (GEN), Colonoscopy (DC) Status ED Status: Left Department
[2018-03-08] MEDS: rifAXIMin 550 MG Tablet PO SCH (09:06)
[2018-03-08] MEDS: Phytonadione 5 MG/SWFI 5 ML Oral Syringe PO SCH (09:06)
[2018-03-08] MEDS: Pentoxifylline 400 MG Controlled Release Tablet PO SCH (09:06)
[2018-03-08] MEDS: Propranolol 10 MG Tablet PO SCH (09:06)
[2018-03-08] MEDS: Furosemide 40 MG Tablet PO SCH (09:06)
== END 2018-03-08 11:06 | disposition home or self-care (01) ==
LOC: PHED 15:15 → PHEDA 19:58 → N06 03-05 00:26
PROVIDERS: ADMIT Hospitalist; ATTEND Hospitalist
PROC: COLONOS (2018-03-06 09:21)
PROC: PANENDO (2018-03-06 09:21)
DX: K42.9 Umbilical hernia without obstruction or gangrene; Z88.1 Allergy status to other antibiotic agents; Y90.9 Presence of alcohol in blood, level not specified; Z88.5 Allergy status to narcotic agent; K31.89 Other diseases of stomach and duodenum; D68.4 Acquired coagulation factor deficiency; I85.10 Secondary esophageal varices without bleeding; D64.9 Anemia, unspecified; D12.4 Benign neoplasm of descending colon; D72.829 Elevated white blood cell count, unspecified; F10.239 Alcohol dependence with withdrawal, unspecified; E87.1 Hypo-osmolality and hyponatremia; K76.6 Portal hypertension; E88.09 Other disorders of plasma-protein metabolism, not elsewhere classified; F17.210 Nicotine dependence, cigarettes, uncomplicated; I10 Essential (primary) hypertension; K64.8 Other hemorrhoids; L53.9 Erythematous condition, unspecified; Z23 Encounter for immunization; K70.31 Alcoholic cirrhosis of liver with ascites; Z88.0 Allergy status to penicillin

== ENCOUNTER 2018-04-01 09:19 | Inpatient (IN) ==
--- NOTE | 2018-04-01 10:28 | ED ---
HPI General Chief Complaint: Altered Mental Status Stated Complaint: flu symptoms Time Seen by Provider: 04/01/18 10:01 History of Present Illness HPI narrative: This patient is brought in by his mother for altered mental status. He has history of alcohol abuse and is still drinking. He has cirrhosis esophageal varices and hyponatremia. Duration 3 days. Mother notes he has been confused and lethargic. She took away his car keys. He does not take sedating medicines. He denies illicit drug use beyond alcohol. She reports that she caught him drinking wine yesterday. He denies bleeding problems. Symptoms are severe. No alleviating factors. Symptoms exacerbated by his continued drinking. Related Data Home Medications Medication Instructions Recorded Confirmed cyanocobalamin (vitamin B-12) 1,000 mcg PO DAILY 03/04/18 04/01/18 [Vitamin B-12] furosemide [Lasix] 40 mg PO DAILY 03/04/18 04/01/18 multivitamin 1 tab PO DAILY 03/04/18 04/01/18 potassium 1 tab PO DAILY 03/04/18 04/01/18 amlodipine 5 mg PO DAILY 04/01/18 04/01/18 lactulose 20 g PO DAILY 04/01/18 04/01/18 propranolol 40 mg PO DAILY 04/01/18 04/01/18 ropinirole [Requip] 0.5 mg PO DAILY 04/01/18 04/01/18 spironolactone 100 mg PO DAILY 04/01/18 04/01/18 Allergies Allergy/AdvReac Type Severity Reaction Status Date / Time cephalexin Allergy Unknown Hives Verified 03/04/18 15:18 penicillin G Allergy Unknown Hives Verified 03/04/18 15:18 codeine AdvReac Mild N/V Verified 03/04/18 15:18 Review of Systems ROS: all other systems reviewed are negative [facility] Medical History Medical History AA (alcohol abuse) (Acute) Cirrhosis (Acute) Hypertension (Acute) Umbilical hernia (Acute) Surgical History Surgical History No history of previous surgery (Acute) Family History Family History Other No significant family history Social History Social History Substance History: Active Abuse Second Hand Smoke Exposure: Yes Smoking Status: Current every day smoker Tobacco Type: Cigarettes How Often Do You Have a Drink Containing Alcohol: 4 or more times a week Recent Travel in [facility] within the Last 8 Weeks: No Recent Out of Country Travel within the Last 8 Weeks: No Substance Abuse Detail Marijuana: Substance Use Status: Active Immunization History Tetanus Immunization: Unsure Exam Narrative Exam Narrative: GENERAL: Disheveled lethargic well-developed patient who is confused . SKIN: Focused skin assessment reveals no rash and nodules. Skin is Warm and dry. HEAD: Atraumatic. He has bilateral temporal wasting EYES: Pupils equal and round. No scleral icterus. No injection or drainage. ENT: No nasal bleeding, has crusted mucus in both nares. Mucous membranes pink and dry. Normal gag reflex NECK: Trachea midline. No JVD. CARDIOVASCULAR: Regular rate and rhythm. No murmur appreciated. Bradycardic in the 50s RESPIRATORY: No accessory muscle use. Clear to auscultation. Breath sounds equal bilaterally. GASTROINTESTINAL: Abdomen soft, non-tender, slightly distended. Readily reproducible umbilical hernia. Hepatic and splenic margins not palpable. MUSCULOSKELETAL: No obvious deformities. No clubbing. No cyanosis. Symmetric pitting edema from the knees down. There is hyperpigmentation stasis NEUROLOGICAL: Awake but very drowsy. He is confused. Motor and sensation difficult to accurately gauge given his limited participation in the exam. Mumbling and difficult to understand speech. PSYCHIATRIC: Difficult to assess mood and affect given his altered mental status ; insight and judgment poor . Course Initial Documented Vital Signs Temperature 98.1 F 04/01/18 09:34 Pulse Rate 48 L 04/01/18 09:34 Respiratory Rate 14 04/01/18 09:34 Blood Pressure 131/46 L 04/01/18 09:34 Pulse Oximetry 100 04/01/18 09:34 Last Documented Vital Signs Temperature 98.1 F 04/01/18 09:34 Pulse Rate 50 L 04/01/18 13:00 Respiratory Rate 16 04/01/18 13:00 Blood Pressure 100/57 L 04/01/18 13:00 Pulse Oximetry 100 04/01/18 13:00 Critical Care Time Critical Care Time: Yes Total Critical Care Time: 40 Attestation: Aggregate critical care time was 40 minutes. Time to perform other separately billable procedures was not included in the critical care time. My time did not include minutes spent treating any other patients simultaneously or on activities that did not directly contribute to the patient's treatment. The services I provided to this patient were to treat and/or prevent clinically significant deterioration that could result in: Cardiopulmonary arrest, aspiration, loss of airway I provided critical care services requiring my management, as noted below: Chart data review, documentation time, medication orders and management, vital sign assessments/reviewing monitor data, ordering and reviewing lab tests, ordering and interpreting/reviewing x-rays and diagnostic studies, care of the patient and discussion of the patient with the admitting physicians. Medical Decision Making MDM Narrative Medical decision making narrative: 47-year-old male presents 3 days of confusion. Presentation seems most consistent with hepatic encephalopathy based on history and exam. Extensive workup has been ordered including labs and CT of brain. He is not febrile nor tachycardic nor hypotensive. Does not look septic. Brain CT is negative. Ammonia is 40. Other labs are reviewed. He is thrombocytopenia as expected His mental status is poor. He is controlling his airway but very lethargic. I think he has hepatic encephalopathy and I reviewed with the hospitalist who will admit. Medical Screen Exam Complete: Yes Emergency Medical Condition: Yes Differential Diagnosis Differential Diagnosis: Hepatic encephalopathy, hyponatremia, intracranial hemorrhage Medical Records Medical records reviewed: Yes I reviewed the patient's medical records. Reviewed his GI bleed admission from 1 month ago Lab Data Lab results reviewed: Yes I reviewed the patient's lab results. Lab results narrative: Patient has thrombocytopenia and mild anemia. His ammonia is 40 Result diagrams: 04/01/18 12:05 04/01/18 12:05 Lab Results 04/01/18 04/01/18 04/01/18 Range/Units 10:26 12:05 12:05 WBC 5.2 (4.0-11.0) th/mm3 RBC 3.15 L (4.50-5.90) mil/mm3 Hgb 10.5 L (13.0-17.0) gm/dL Hct 30.8 L (39.0-51.0) % MCV 97.8 (80.0-100.0) fL MCH 33.5 (27.0-34.0) pg MCHC 34.2 (32.0-36.0) % RDW 17.6 H (11.6-17.2) % Plt Count 61 L D (150-450) th/mm3 MPV 6.6 L (7.0-11.0) fL Prelim Diff (Auto) Slide review pending Neut % (Auto) 74.2 H (16.0-70.0) % Lymph % (Auto) 10.5 (9.0-44.0) % Todd % (Auto) 13.5 H (0.0-8.0) % Eos % (Auto) 1.1 (0.0-4.0) % Baso % (Auto) 0.7 (0.0-2.0) % Neut # (Auto) 3.8 (1.8-7.7) th/mm3 Lymph # (Auto) 0.5 L (1.0-4.8) th/mm3 Todd # (Auto) 0.7 (0.0-0.9) th/mm3 Eos # (Auto) 0.1 (0.0-0.4) th/mm3 Baso # (Auto) 0.0 (0.0-0.2) th/mm3 WBC Differential . Diff Scan Auto diff confirmed Differential Comment . Platelet Estimate Low L (Normal) Platelet Morphology Normal (Normal) PT 13.1 H (9.8-11.6) sec INR 1.3 Ratio APTT 27.9 (23.4-31.7) sec Sodium (136-145) meq/L Potassium (3.5-5.1) meq/L Chloride (98-107) meq/L Carbon Dioxide (21.0-32.0) meq/L Anion Gap (5-15) meq/L BUN (7-18) mg/dL Creatinine (0.60-1.30) mg/dL Estimated GFR (>89) mL/min Random Glucose (74-106) mg/dL Calcium (8.5-10.1) mg/dL Magnesium (1.5-2.5) mg/dL Total Bilirubin (0.2-1.0) mg/dL AST (15-37) U/L ALT (12-78) U/L Alkaline Phosphatase (45-117) U/L Ammonia 40 H (11-32) mcmol/L Total Protein (6.4-8.2) g/dL Albumin (3.4-5.0) g/dL TSH (0.358-3.740) uIU/mL Urine Color (Yellw/Straw) Urine Clarity (Clear) Urine pH (5.0-8.5) Ur Specific Filer (1.002-1.035) Urine Protein (Neg-Trace) mg/dL Urine Glucose (UA) (Negative) mg/dL Urine Ketones (Negative) mg/dL Urine Occult Blood (Negative) Urine Nitrate (Negative) Urine Bilirubin (Negative) Urine Urobilinogen (Less than 2) mg/dL Ur Leukocyte Esterase (Negative) Urine RBC (0-3) /hpf Urine WBC (0-5) /hpf Micro UA Comment Ur Microscopic Review Urine Culture Comments Urine Opiates Screen (Neg) Ur Barbiturates Screen (Neg) Ur Amphetamines Screen (Neg) U Benzodiazepines Scrn (Neg) Urine Cocaine Screen (Neg) U Cannabinoids Screen (Neg) Serum Alcohol (0-5) mg/dL 04/01/18 04/01/18 04/01/18 Range/Units 12:05 12:15 12:15 WBC (4.0-11.0) th/mm3 RBC (4.50-5.90) mil/mm3 Hgb (13.0-17.0) gm/dL Hct (39.0-51.0) % MCV (80.0-100.0) fL MCH (27.0-34.0) pg MCHC (32.0-36.0) % RDW (11.6-17.2) % Plt Count (150-450) th/mm3 MPV (7.0-11.0) fL Prelim Diff (Auto) Neut % (Auto) (16.0-70.0) % Lymph % (Auto) (9.0-44.0) % Todd % (Auto) (0.0-8.0) % Eos % (Auto) (0.0-4.0) % Baso % (Auto) (0.0-2.0) % Neut # (Auto) (1.8-7.7) th/mm3 Lymph # (Auto) (1.0-4.8) th/mm3 Todd # (Auto) (0.0-0.9) th/mm3 Eos # (Auto) (0.0-0.4) th/mm3 Baso # (Auto) (0.0-0.2) th/mm3 WBC Differential Diff Scan Differential Comment Platelet Estimate (Normal) Platelet Morphology (Normal) PT (9.8-11.6) sec INR Ratio APTT (23.4-31.7) sec Sodium 139 (136-145) meq/L Potassium 4.3 (3.5-5.1) meq/L Chloride 109 H (98-107) meq/L Carbon Dioxide 23.3 (21.0-32.0) meq/L Anion Gap 7 (5-15) meq/L BUN 15 (7-18) mg/dL Creatinine 0.61 (0.60-1.30) mg/dL Estimated GFR Greater than 89 (>89) mL/min Random Glucose 92 (74-106) mg/dL Calcium 8.5 (8.5-10.1) mg/dL Magnesium 2.0 (1.5-2.5) mg/dL Total Bilirubin 1.9 H (0.2-1.0) mg/dL AST 52 H (15-37) U/L ALT 35 (12-78) U/L Alkaline Phosphatase 219 H (45-117) U/L Ammonia (11-32) mcmol/L Total Protein 6.9 (6.4-8.2) g/dL Albumin 2.5 L (3.4-5.0) g/dL TSH 1.800 (0.358-3.740) uIU/mL Urine Color Yellow (Yellw/Straw) Urine Clarity Clear (Clear) Urine pH 7.0 (5.0-8.5) Ur Specific Filer 1.006 (1.002-1.035) Urine Protein Negative (Neg-Trace) mg/dL Urine Glucose (UA) Negative (Negative) mg/dL Urine Ketones Negative (Negative) mg/dL Urine Occult Blood Negative (Negative) Urine Nitrate Negative (Negative) Urine Bilirubin Negative (Negative) Urine Urobilinogen 0.2 (Less than 2) mg/dL Ur Leukocyte Esterase Negative (Negative) Urine RBC Less than 1 (0-3) /hpf Urine WBC Less than 1 (0-5) /hpf Micro UA Comment Culture not ind Ur Microscopic Review Not Reportable Urine Culture Comments Culture not ind Urine Opiates Screen Neg (Neg) Ur Barbiturates Screen Neg (Neg) Ur Amphetamines Screen Neg (Neg) U Benzodiazepines Scrn Neg (Neg) Urine Cocaine Screen Neg (Neg) U Cannabinoids Screen Pos H (Neg) Serum Alcohol Less than 3 (0-5) mg/dL Imaging Data Attestation: I personally reviewed and interpreted this imaging study as follows : My impression: Brain CT is normal Radiologist's impression: Head CT 04/01/18 10:17 CONCLUSION: 1. Negative for acute process. . Discharge Plan Discharge Disposition Patient Disposition: ED Admit(ED Internal Use Only) Discharge Details Diagnosis: Altered mental status, Hepatic encephalopathy Physicians Team ED Provider: Robi Byrd Primary Care Provider: UNKNOWN, Rxs /Orders / Referrals /Forms Prescriptions: No Action multivitamin Tablet 1 tab PO DAILY RF: 0 furosemide [Lasix] 40 mg Tablet 40 mg PO DAILY RF: 0 cyanocobalamin (vitamin B-12) [Vitamin B-12] 1,000 mcg Tablet 1,000 mcg PO DAILY RF: 0 potassium 99 mg Tablet 1 tab PO DAILY RF: 0 amlodipine 5 mg Tablet 5 mg PO DAILY RF: 0 propranolol 40 mg Tablet 40 mg PO DAILY RF: 0 ropinirole [Requip] 0.5 mg Tablet 0.5 mg PO DAILY RF: 0 spironolactone 50 mg Tablet 100 mg PO DAILY RF: 0 lactulose 10 gram/15 mL Solution 20 g PO DAILY RF: 0 Discharge Interventions Interventions: Vital Signs Last Done: 04/01/18 13:00 Status ED Status: With Doctor
--- NOTE | 2018-04-01 11:08 | CT ---
EXAM DATE: 04/01/2018 11:03 AM EST AGE/SEX: 47 years / Male INDICATIONS: Confusion and weakness CLINICAL DATA: This is the patient's initial encounter. Patient reports that signs and symptoms have been present for 1 day and indicates a pain score of Nonresponsive. MEDICAL/SURGICAL HISTORY: Hypertension. None. RADIATION DOSE: 37.42 CTDI (mGy) COMPARISON: [facility], CT BRAIN W/O CONTRAST, 07/20/2017. . TECHNIQUE: CT of the head without contrast. Using automated exposure control and adjustment of the mA and/or kV according to patient size, radiation dose was kept as low as reasonably achievable to ob tain optimal diagnostic quality images. DICOM format image data is available electronically for revi ew and comparison. FINDINGS: Cerebrum: The ventricles are normal for age. No evidence of midline shift, mass lesion, hemorrhage or acute infarction. No extraaxial fluid collections are seen. Posterior Fossa: The cerebellum and brainstem are intact. The 4th ventricle is midline. The cerebe llopontine angle is unremarkable. Extracranial: The visualized portion of the orbits is intact. Skull: Evidence for previous fracture seen about the right maxillary sinus. CONCLUSION: 1. Negative for acute process. . Electronically signed by: Brandyn Hines MD Board Certified Radiologist 04/01/2018 11:06 AM EST
[2018-04-01 12:30] LABS: Baso % (Auto) 0.7 % (0.0-2.0); Eos # (Auto) 0.1 th/mm3 (0.0-0.4); Eos % (Auto) 1.1 % (0.0-4.0); Hematocrit 30.8 % (39.0-51.0); Hemoglobin 10.5 gm/dL (13.0-17.0); Lymph # (Auto) 0.5 th/mm3 (1.0-4.8); Lymph % (Auto) 10.5 % (9.0-44.0); Mean Corpuscular HGB Conc 34.2 % (32.0-36.0); Mean Corpuscular Hemoglobin 33.5 pg (27.0-34.0); Mean Corpuscular Volume 97.8 fL (80.0-100.0); Mean Platelet Volume 6.6 fL (7.0-11.0); Mono # (Auto) 0.7 th/mm3 (0.0-0.9); Mono % (Auto) 13.5 % (0.0-8.0); Neut # (Auto) 3.8 th/mm3 (1.8-7.7); Neut % (Auto) 74.2 % (16.0-70.0); Platelet Count 61 th/mm3 (150-450); Red Blood Count 3.15 mil/mm3 (4.50-5.90); Red Cell Distribution Width 17.6 % (11.6-17.2); White Blood Count 5.2 th/mm3 (4.0-11.0)
[2018-04-01 12:33] LABS: Bilirubin,Urine Negative (Negative); Clarity,Urine Clear (Clear); Color,Urine Yellow (Yellw/Straw); Glucose,Urine (UA) Negative (Negative); Leukocyte Esterase,Urine Negative (Negative); Nitrite,Urine Negative (Negative); Specific Gravity,Urine 1.006 (1.002-1.035)
[2018-04-01 12:36] LABS: Urobilinogen,Urine 0.2 mg/dL (Less than 2)
[2018-04-01 12:38] LABS: Amphetamine Screen,Urine Neg (Neg); Barbiturate Screen,Urine Neg (Neg); Cannabinoid Screen,Urine Pos (Neg); Cocaine Screen,Urine Neg (Neg)
[2018-04-01 12:40] LABS: Activated Partial Thrombo Time 27.9 sec (23.4-31.7); INR 1.3 Ratio; Prothrombin Time 13.1 sec (9.8-11.6)
[2018-04-01 12:47] LABS: Albumin 2.5 g/dL (3.4-5.0); Anion Gap 7 meq/L (5-15); Aspartate Aminotransferase 52 U/L (15-37); Blood Urea Nitrogen 15 mg/dL (7-18); Calcium 8.5 mg/dL (8.5-10.1); Carbon Dioxide 23.3 meq/L (21.0-32.0); Chloride 109 meq/L (98-107); Glomerular Filtration Rate Greater Than 89 mL/min (>89); Glucose,Random 92 mg/dL (74-106); Potassium 4.3 meq/L (3.5-5.1); Sodium 139 meq/L (136-145)
[2018-04-01 12:48] LABS: Alanine Aminotransferase 35 U/L (12-78)
[2018-04-01 12:50] LABS: Opiate Screen,Urine Neg (Neg)
[2018-04-01 12:57] LABS: Platelet Morphology Normal (Normal)
[2018-04-01 12:58] LABS: Alkaline Phosphatase 219 U/L (45-117); Total Protein 6.9 g/dL (6.4-8.2)
[2018-04-01 13:14] VITALS: O2SAT 100
[2018-04-01] MEDS ORDERED: Acetaminophen 325 MG Tablet PO PRN (14:39)
--- NOTE | 2018-04-01 14:52 | P.HPIM ---
History of Present Illness Primary Care Physician: UNKNOWN Chief Complaint: Confusion History of Present Illness: The patient is a 47-year-old male with a past medical history of liver failure who is presenting to the hospital with increased confusion. The patient was lethargic and unable to give a detailed history. His mother was at the bedside and stated that about 2 or 3 weeks ago he was started on lactulose. He has been taking lactulose once a day since then. She said while he was in the hospital he had a few areas banded and was supposed to have a follow-up EGD next week. The patient's mother states that the patient became confused about 2-3 days ago. He started acting strangely. She said that he urinated in the kitchen garbage can today. He also was seeing things that were not there. He has been pacing a lot. He has been having a hard time staying asleep. He has had some pain in his lower extremities as well. He continues to smoke and drink. His last drink was yesterday. The patient wants to go home. Review of Systems Review of Systems: all other systems reviewed are negative [facility] Medical History Medical History AA (alcohol abuse) (Acute) Cirrhosis (Acute) Hypertension (Acute) Umbilical hernia (Acute) Surgical History Surgical History No history of previous surgery (Acute) Family History Family History Other No significant family history Social History Social History Substance History: Active Abuse Second Hand Smoke Exposure: Yes Smoking Status: Current every day smoker Tobacco Type: Cigarettes How Often Do You Have a Drink Containing Alcohol: 4 or more times a week Recent Travel in [facility] within the Last 8 Weeks: No Recent Out of Country Travel within the Last 8 Weeks: No Substance Abuse Detail Marijuana: Substance Use Status: Active Immunization History Tetanus Immunization: Unsure Medications and Allergies Allergies Allergy/AdvReac Type Severity Reaction Status Date / Time cephalexin Allergy Unknown Hives Verified 03/04/18 15:18 penicillin G Allergy Unknown Hives Verified 03/04/18 15:18 codeine AdvReac Mild N/V Verified 03/04/18 15:18 Home Medications Medication Instructions Recorded Confirmed Type cyanocobalamin (vitamin B-12) 1,000 mcg PO DAILY 03/04/18 04/01/18 History [Vitamin B-12] furosemide [Lasix] 40 mg PO DAILY 03/04/18 04/01/18 History multivitamin 1 tab PO DAILY 03/04/18 04/01/18 History potassium 1 tab PO DAILY 03/04/18 04/01/18 History amlodipine 5 mg PO DAILY 04/01/18 04/01/18 History lactulose 20 g PO DAILY 04/01/18 04/01/18 History propranolol 40 mg PO DAILY 04/01/18 04/01/18 History ropinirole [Requip] 0.5 mg PO DAILY 04/01/18 04/01/18 History spironolactone 100 mg PO DAILY 04/01/18 04/01/18 History Active Medications: Active Medications Acetaminophen (Tylenol) 650 mg PO Q4H PRN PRN Reason: Temp > 100.4, pain 1-2 Sterile Water 700 ml/ (Lactulose 300 ml) 0 ml RECTAL ONCE ONE Stop: 04/01/18 16:01 Cyanocobalamin (Vitamin B12) 1,000 mcg PO DAILY MIKE Furosemide (Lasix) 40 mg PO DAILY MIKE Lactulose (Lactulose Liq) 30 ml PO QID MIKE Multivitamins (Theragran) 1 tab PO DAILY MIKE Ondansetron HCl (Zofran Inj) 4 mg IV.PUSH Q6H PRN PRN Reason: NAUSEA OR VOMITING Propranolol HCl (Inderal) 40 mg PO DAILY MIKE Sodium Chloride (Ns Flush) 2 ml IV.FLUSH PRN PRN PRN Reason: FLUSH AFTER USING IV ACCESS Sodium Chloride (Ns Flush) 2 ml IV.FLUSH BID MIKE Sodium Chloride (Ns Flush) 2 ml IV.FLUSH PRN PRN PRN Reason: FLUSH AFTER USING IV ACCESS Spironolactone (Aldactone) 100 mg PO DAILY [facility] Physical Exam Vital signs: Vital Signs 04/01/18 09:34 04/01/18 09:55 04/01/18 10:37 Temperature 98.1 F Pulse Rate 48 L 48 L 57 L Respiratory Rate 14 16 Blood Pressure 131/46 L 135/78 Pulse Oximetry 100 100 100 04/01/18 11:52 04/01/18 13:00 04/01/18 14:00 Temperature Pulse Rate 54 L 50 L 59 L Respiratory Rate 16 16 18 Blood Pressure 144/88 H 100/57 L 142/76 H Pulse Oximetry 99 100 100 Intake & Output 03/31/18 04/01/18 04/01/18 18:59 06:59 18:59 Weight 70.307 kg Narrative: GENERAL: Disheveled lethargic well-developed patient who is confused. SKIN: Focused skin assessment reveals no rash and nodules. Skin is Warm and dry. HEAD: Atraumatic. He has bilateral temporal wasting EYES: Pupils equal and round. No scleral icterus. No injection or drainage. ENT: No nasal bleeding, has crusted mucus in both nares. Mucous membranes pink and dry. Normal gag reflex NECK: Trachea midline. No JVD. CARDIOVASCULAR: Regular rate and rhythm. No murmur appreciated. RESPIRATORY: No accessory muscle use. Clear to auscultation. Breath sounds equal bilaterally. GASTROINTESTINAL: Abdomen soft, non-tender, slightly distended. MUSCULOSKELETAL: No obvious deformities. No clubbing. No cyanosis. Symmetric pitting edema from the knees down. NEUROLOGICAL: Awake but confused. Motor and sensation difficult to accurately gauge given his limited participation in the exam. Slow speech. Results Labs CBC & Chem 7: 04/01/18 12:05 04/01/18 12:[address] 04/01/18 10:17 CONCLUSION: 1. Negative for acute process. . Caprini VTE Risk Assessment Caprini VTE Risk Assessment: Moderate/High Risk (score >= 2) Caprini Risk Assessment Model: Point Value = 1 Point Value = 2 Point Value = 3 Point Value = 5 Age 41-60 Minor surgery BMI > 25 kg/m2 Swollen legs Varicose veins or History of unexplained or recurrent spontaneous Oral contraceptives or hormone replacement Sepsis (< 1 month) Serious lung disease, including pneumonia (< 1 month) Abnormal pulmonary function Acute myocardial infarction Congestive heart failure (< 1 month) History of inflammatory bowel disease Medical patient at bed rest Age 61-74 Arthroscopic surgery Major open surgery (> 45 min) Laparoscopic surgery (> 45 min) Malignancy Confined to bed (> 72 hours) Immobilizing plaster cast Central venous access Age >= 75 History of VTE Family history of VTE Factor V Leiden Prothrombin [id number] Lupus anticoagulant Anticardiolipin antibodies Elevated serum homocysteine Heparin-induced thrombocytopenia Other congenital or acquired thrombophilia Stroke (< 1 month) Elective arthroplasty Hip, pelvis, or leg fracture Acute spinal cord injury (< 1 month) Prophylaxis Regimen: Total Risk Factor Score Risk Level Prophylaxis Regimen 0-1 Low Early ambulation 2 Moderate Order ONE of the following: *Sequential Compression Device (SCD) *Heparin 5000 units SQ BID 3-4 Higher Order ONE of the following medications: *Heparin 5000 units SQ TID *Enoxaparin/Lovenox 40 mg SQ daily (WT < 150 kg, CrCl > 30 mL/min) *Enoxaparin/Lovenox 30 mg SQ daily (WT < 150 kg, CrCl > 10-29 mL/min) *Enoxaparin/Lovenox 30 mg SQ BID (WT < 150 kg, CrCl > 30 mL/min) AND/OR *Sequential Compression Device (SCD) 5 or more Highest Order ONE of the following medications: *Heparin 5000 units SQ TID (Preferred with Epidurals) *Enoxaparin/Lovenox 40 mg SQ daily (WT < 150 kg, CrCl > 30 mL/min) *Enoxaparin/Lovenox 30 mg SQ daily (WT < 150 kg, CrCl > 10-29 mL/min) *Enoxaparin/Lovenox 30 mg SQ BID (WT < 150 kg, CrCl > 30 mL/min) AND *Sequential Compression Device (SCD) Assessment and Plan Plan Acute hepatic encephalopathy The patient has cirrhosis and has an elevated ammonia level at 40. He has only been taking lactulose once a day. -Increase lactulose to 4 times daily dosing for now. Give enema if noncompliant. -Neurochecks. -PT/ST evals. Cirrhosis Chronic. The patient appears volume overloaded. -Continue diuretics including Aldactone and Lasix. -pt was supposed to have AFP checked as an outpt. Will check here. -follow up with GI as an outpt. Thrombocytopenia S/t above. -follow CBC. -avoid anticoagulation. Alcohol abuse Last drink was the day prior to admission. -CIWA protocol. -cessation instruction. Nicotine abuse The pt still smokes. -cessation instruction. PPx: SCDs
[2018-04-01] MEDS ORDERED: Haloperidol Inj 5 MG/ML Ampul IV.PUSH PRN (15:00)
[2018-04-01] MEDS ORDERED: LORazepam 1 MG Tablet PO PRN (15:00)
[2018-04-01] MEDS ORDERED: Water Sterile for Irr Bot 700 ML, Lactulose Liq 300 ML RECTAL ONE ×2 (16:00)
[2018-04-01 21:45] VITALS: BP 119/60; PULSE 63; RESP 20; TEMP 97.9
[2018-04-02] MEDS ORDERED: Spironolactone 50 MG Tablet PO SCH (09:00)
[2018-04-02] MEDS ORDERED: Propranolol 40 MG Tablet PO SCH (09:00)
[2018-04-02] MEDS ORDERED: Furosemide 40 MG Tablet PO SCH (09:00)
== END 2018-04-02 00:05 | disposition left against medical advice (07) | DRG 442 ==
LOC: NEPC 09:19 → NEDA 14:56 → N05 17:04
PROVIDERS: ADMIT Hospitalist; ATTEND Hospitalist